=== PATIENT | female | born 1950 | race Caucasian/White ===

== ENCOUNTER 2020-07-28 11:28 | Outpatient (REF) | payer BC, SELFPAY ==
[2020-07-28 14:04] LABS: MANUAL DIFF FLAG NO
[2020-07-28 14:06] LABS: Basophils Absolute Auto 0.1 X10*3/uL (0.0-0.2); Eosinophils Absolute Auto 0.5 X10*3/uL (0.0-0.4); Eosinophils Percent Auto 5.5 % (0-4); Hematocrit 38.3 % (37-47); Hemoglobin 12.7 g/dl (12.0-16.0); Imm Gran Abs Auto 0.03 X10*3/uL (0.00-0.03); Imm Gran Pct Auto 0.4 % (0.0-0.4); Lymphocytes Absolute Auto 2.3 X10*3/uL (1.2-4.9); Lymphocytes Percent Auto 28.3 % (20-40); Mean Corpuscular HGB Conc 33.2 g/dl (31.0-35.0); Mean Corpuscular Hemoglobin 32.5 pg (27.0-33.0); Mean Platelet Volume 9.7 fL (9.4-12.3); Monocytes Absolute Auto 0.6 X10*3/uL (0.1-1.2); Monocytes Percent Auto 7.7 % (2-11); Neutrophils Absolute Auto 4.6 X10*3/uL (2.0-8.3); Neutrophils Percent Auto 57.1 % (45-73); Platelet Count 324 X10*3/uL (160-400); Red Blood Count 3.91 X10*6/uL (4.20-5.50); White Blood Count 8.1 X10*3/uL (4.8-10.8)
[2020-07-28 15:03] LABS: Alanine Aminotransferase 10 U/L (0-31); Alkaline Phosphatase 45 U/L (39-117); Anion Gap 13 (12-20); Aspartate Amino Transferase 16 U/L (5-31); Bilirubin Total 0.4 mg/dL (0.0-1.0); Blood Urea Nitrogen 17 mg/dL (9-16); Carbon Dioxide 26 mmol/L (22-29); Chloride 104 mmol/L (96-108); Cholesterol 260 mg/dL; Estimated Glomerular Filt Rate > 60; Glucose Random 76 mg/dL (60-115); Potassium 4.3 mmol/L (3.3-5.1); Sodium 139 mmol/L (135-145); Total Protein 6.7 g/dL (6.5-8.0)
[2020-07-28 15:06] LABS: Free T4 (Free Thyroxine) 0.77 ng/dL (0.71-1.85); Thyroid Stimulating Hormone 2.59 uIU/mL (0.32-4.0)
== END 2020-07-28 11:29 | disposition home or self-care (01) ==
LOC: HO.10HDL 11:28
PROVIDERS: Visit Provider Internal Medicine
DX: J44.9 Chronic obstructive pulmonary disease, unspecified (principal); K21.9 Gastro-esophageal reflux disease without esophagitis; I83.90 Asymptomatic varicose veins of unspecified lower extremity; Z98.890 Other specified postprocedural states
CPT/HCPCS: 36415; 80053; 82465; 84439; 84443; 85025

== ENCOUNTER 2021-04-09 | Outpatient (REF) | payer BC, SELFPAY | END 2021-04-09 00:01 | disposition home or self-care (01) | LOC: HO.LAB | PROVIDERS: Visit Provider Internal Medicine | DX: Z20.822 Contact with and (suspected) exposure to COVID-19 (principal) | CPT/HCPCS: 36415; 87635; C9803 ==

== ENCOUNTER 2021-11-17 16:08 | Outpatient (REF) | payer MEDICARE, SELFPAY ==
--- NOTE | ~2021-11-17 | XR_ITS ---
EXAMINATION: XR CERVICAL SPINE CLINICAL INFORMATION: Pain and neck region down the shoulders COMPARISON: None TECHNIQUE: 3 views of the cervical spine were obtained. FINDINGS: There is normal cervical lordosis. The vertebral heights and alignment is normal. There is loss of C4-C5, C5-C6 and C6-C7 disc heights. There is mild spinal spondylosis mid cervical spine. There is mild bilateral narrowing of C5-C6 and C6-C7 neural foramina from uncovertebral hypertrophic changes. No visible acute fracture, dislocation or subluxation seen. There are surgical linda in the anterior neck from previous intervention. XR/XR cervical spine 4V IMPRESSION: No visible acute fracture dislocation. Mild ventral spondylosis C5-C6 and C6-C7 disc levels from uncovertebral hypertrophic changes.
== END 2021-11-17 16:09 | disposition home or self-care (01) ==
LOC: HO.XRAY 16:08
PROVIDERS: PCP Internal Medicine; Visit Provider Internal Medicine
DX: M54.2 Cervicalgia (principal)
CPT/HCPCS: 72050

== ENCOUNTER 2023-11-15 10:07 | Outpatient (REF) | payer MEDICARE, SELFPAY ==
--- NOTE | ~2023-11-15 | XR_ITS ---
EXAMINATION: XR ANKLE, RIGHT XR FOOT, RIGHT CLINICAL INDICATION: Right ankle injury, patient states he fell off of stairs. TECHNIQUE: 5 views of the right foot and ankle. COMPARISON: None available. FINDINGS: RIGHT ANKLE/FOOT: Diffuse soft tissue swelling at the ankle with joint effusion. Diffuse demineralization. Tiny plantar calcaneal spur. Mild degenerative changes at the tibiotalar joint. Mild degenerative changes in the first metatarsophalangeal joint. Subtle, linear calcification along the inferomedial aspect of the fibula, possibly representing a mildly displaced fracture versus chronic/degenerative calcification versus artifact. XR/XR foot RT min 3V IMPRESSION: 1. Diffuse soft tissue swelling at the ankle with joint effusion. 2. Diffuse demineralization. 3. Subtle, linear calcification along the inferomedial aspect of the fibula, possibly representing a mildly displaced fracture versus chronic/degenerative calcification versus artifact. 4. Correlation with clinical exam recommended to determine further management including possible additional imaging with CT scan if fracture is suspected. This study was presented today November 15, 2023 for interpretation. Stat results provided at this time as requested by referring provider.
--- NOTE | ~2023-11-15 | XR_ITS ---
EXAMINATION: XR ANKLE, RIGHT XR FOOT, RIGHT CLINICAL INDICATION: Right ankle injury, patient states he fell off of stairs. TECHNIQUE: 5 views of the right foot and ankle. COMPARISON: None available. FINDINGS: RIGHT ANKLE/FOOT: Diffuse soft tissue swelling at the ankle with joint effusion. Diffuse demineralization. Tiny plantar calcaneal spur. Mild degenerative changes at the tibiotalar joint. Mild degenerative changes in the first metatarsophalangeal joint. Subtle, linear calcification along the inferomedial aspect of the fibula, possibly representing a mildly displaced fracture versus chronic/degenerative calcification versus artifact. XR/XR ankle RT min 3V IMPRESSION: 1. Diffuse soft tissue swelling at the ankle with joint effusion. 2. Diffuse demineralization. 3. Subtle, linear calcification along the inferomedial aspect of the fibula, possibly representing a mildly displaced fracture versus chronic/degenerative calcification versus artifact. 4. Correlation with clinical exam recommended to determine further management including possible additional imaging with CT scan if fracture is suspected. This study was presented today November 15, 2023 for interpretation. Stat results provided at this time as requested by referring provider.
== END 2023-11-15 10:08 | disposition home or self-care (01) ==
LOC: HO.XRAY 10:07
PROVIDERS: PCP Internal Medicine; Visit Provider Internal Medicine
DX: S99.911D Unspecified injury of right ankle, subsequent encounter (principal)
CPT/HCPCS: 73610; 73630

== ENCOUNTER 2023-12-30 11:29 | Outpatient (REF) | payer MEDICARE, SELFPAY ==
[2024-01-02 21:44] LABS: Lyme Abs Screen <0.90 index
== END 2023-12-30 11:30 | disposition home or self-care (01) ==
LOC: HO.LAB 11:29
PROVIDERS: PCP Internal Medicine; Visit Provider Internal Medicine
DX: T14.8XXA Other injury of unspecified body region, initial encounter (principal); W57.XXXA Bitten or stung by nonvenomous insect and other nonvenomous arthropods, initial encounter
CPT/HCPCS: 36415; 86617; 86618

== ENCOUNTER 2024-03-20 17:34 | Emergency (ER) | payer MEDICARE, SELFPAY ==
--- NOTE | ~2024-03-20 | XR_ITS ---
EXAMINATION: XR CHEST CLINICAL INFORMATION: HTN COMPARISON: None available. TECHNIQUE: 2 views of the chest were obtained. FINDINGS: Lungs are hyperinflated. The heart and pulmonary vessels appear normal. No infiltrates, effusions or lung masses are seen. XR/XR chest 2V IMPRESSION: Hyperinflated lungs. No acute intrathoracic disease. Electronically signed by: Amandeep Carter MD 03/20/2024 09:28 PM EST
--- NOTE | ~2024-03-20 | CT_ITS ---
EXAMINATION: CT HEAD WITHOUT CONTRAST CLINICAL INFORMATION: Hypertension with headache. COMPARISON: None available. TECHNIQUE: Contiguous axial imaging was performed from the skull base to vertex without intravenous administration of contrast. This CT examination was performed using dose optimization techniques as appropriate, variously including the following: *Automated exposure control *Adjustment of mA and/or kV according to patient size (this includes techniques or standardized protocols for targeted exams where dose is matched to indication/reason for exam; i.e. extremities or head) *Use of iterative reconstruction technique DLP: 552 mGy-cm FINDINGS: The lateral, third and fourth ventricles are normally outlined. The cortical sulci and basal cisterns are normally outlined as well. There is no acute territorial defects, hemorrhage or midline shift. The extra-axial spaces are unremarkable. Calvarium/scalp: Intact. Maxillofacial sinuses and mastoids: There are bilateral maxillary sinus opacities. The remaining visualized maxillofacial sinuses and mastoids are clear. CT/CT head/brain wo IV con IMPRESSION: 1. No acute intracranial abnormality 2. Bilateral maxillary sinus disease. Correlation for current significance needed. Electronically signed by: Kory Skelton MD 03/20/2024 11:42 PM [facility]
[2024-03-20 17:45] VITALS: BP 156/97; PULSE 86; RESP 16; TEMP 36.9; O2SAT 98; BMI 23.0
--- NOTE | 2024-03-20 17:52 | ECG_ITS ---
Test Reason : HTN Blood Pressure : / mmHG Vent. Rate : 074 BPM Atrial Rate : 074 BPM P-R Int : 178 ms QRS Dur : 068 ms QT Int : 358 ms P-R-T Axes : 077 039 028 degrees QTc Int : 397 ms Normal sinus rhythm Nonspecific ST abnormality Abnormal ECG When compared with ECG of 23-SEP-2008 14:45, No significant change was found Referred By: Sigrid Green Electronically Signed By:Paul Perera
--- NOTE | 2024-03-20 17:54 | ED.HA ---
HPI - Headache General Chief Complaint: Headache Stated Complaint: High blood pressure/Head pain Time Seen by Provider: 03/20/24 21:33 Source: patient Mode of arrival: ambulatory Limitations: no limitations History of Present Illness ED Provider: HPI Narrative: Patient's history of borderline hypertension not on any medication your noticed headache since afternoon check her blood pressure was in 160 headache is mostly in the occipital and neck area does have chronic neck pain in the past no nausea no vomiting patient was seen by PCP last month blood pressure was slightly elevated advised salt restrictions today she called the primary care physician who advised to start take 2.5 mg amlodipine which she took it around 17:00. Related Data Allergies Allergy/AdvReac Type Severity Reaction Status Date / Time penicillin G [Penicillin G] Allergy Mild RASH Unverified 01/03/20 14:56 vancomycin [Vancomycin] Allergy Mild RED MAN Unverified 03/20/24 17:48 SYNDROME Review of Systems Review of Systems: Yes all other systems are reviewed and are negative FORMERLY [facility], [facility]1983 Social History Social History Smoked in Last 30 Days: No Use of substances other than those prescribed or required for medical reasons: No Advance Directives: No Advance Directives Information Provided: Yes Do you have a plan to hurt others: No Plan Physical Exam Vital Signs: Vital Signs: Last Vital Signs Temp 97.9 F 03/21/24 00:01 Pulse 89 03/21/24 00:01 Resp 16 03/21/24 00:01 BP 143/84 H 03/21/24 00:01 Pulse Ox 97 03/21/24 00:01 O2 Del Method Room Air 03/21/24 00:01 BMI result Body Mass Index 23.0 Appearance: Alert. Oriented X3. No acute distress. Eyes: PERRLA, No Nystagmus ENT: Pharynx normal. Oral Mucosa moist Neck: Normal inspection. Neck supple. CVS: Normal heart rate and rhythm. Pulses normal. Respiratory: No respiratory distress. Equal air entry bilateral, no wheezing/rales/rhonchi Abdomen: Soft and nontender. Bowel sounds are present, no mass palpable, no CVA tenderness Skin: Skin warm and dry. Normal skin color. Normal skin turgor. Extremities: No lower extremity edema. No calf tenderness Neuro: Oriented X 3. No motor deficit. No sensory deficit.No cerebellar signs , cranial nerves II-XII intact Course Course Course Narrative: This is a rapid medical exam performed by Sigrid Green PA-C. The patient is a 73-year-old female with a history of asthma/COPD, presents with multiple complaints. Patient states she has had ongoing neck pain for over a year and a half, she had a recent MRI that reveals she has a disc disease with degenerative changes. Patient has developed a headache that originates from the neck and radiates upward. She noted her blood pressure to be elevated at home, she called her primary care provider, they started her on amlodipine 2.5 mg. We will be screening basic labs, cardiac enzymes and UA to assess for end-organ damage, EKG and chest x-ray. Patient is hemodynamically stable, no longer hypertensive, she is able to return to the waiting room pending her full medical assessment. Medical Decision Making Lab Data MDM Lab Attestation statement: I reviewed the patient's lab results. 03/20/24 18:13 03/20/24 18:12 Labs: Lab Results 03/20/24 03/20/24 Range/Units 18:12 18:13 WBC 8.3 (4.8-10.8) X10*3/uL RBC 3.90 L (4.20-5.50) X10*6/uL Hgb 12.5 (12.0-16.0) g/dl Hct 37.6 (37.0-47.0) % MCV 96.4 (80.0-98.0) fL MCH 32.1 (27.0-33.0) pg MCHC 33.2 (31.0-35.0) g/dl RDW 13.7 (11.0-16.0) % Plt Count 305 (160-400) X10*3/uL MPV 8.9 L (9.4-12.3) fL Immature Gran % (Auto) 1.0 H (0.0-0.4) % Neut % (Auto) 57.1 (45-73) % Lymph % (Auto) 30.5 (20-40) % [place] % (Auto) 7.3 (2-11) % Eos % (Auto) 2.8 (0-4) % Baso % (Auto) 1.3 (0-2) % Lymph # (Auto) 2.5 (1.2-4.9) X10*3/uL [place] # (Auto) 0.6 (0.1-1.2) X10*3/uL Eos # (Auto) 0.2 (0.0-0.4) X10*3/uL Baso # (Auto) 0.1 (0.0-0.2) X10*3/uL Abs Immat Gran (auto) 0.08 H (0.00-0.03) X10*3/uL Absolute Neuts (auto) 4.7 (2.0-8.3) x10*3/uL Absolute Nucleated RBC 0.000 (0.0-0.012) X10*3/uL Nucleated RBC % (auto) 0.0 (0.0-0.2) /100WBC Sodium 135 (135-145) mmol/L Potassium 3.6 (3.3-5.1) mmol/L Chloride 102 (96-108) mmol/L Carbon Dioxide 27 (22-29) mmol/L Anion Gap 10 L (12-20) BUN 12 (9-16) mg/dL Creatinine 0.94 (0.5-1.4) mg/dL Estim Creat Clear Calc 42.1 Estimated GFR 58 Random Glucose 97 (60-115) mg/dL Calcium 8.9 (8.4-10.2) mg/dL Troponin I High Sens < 2.7 (<3.5-17.0) ng/L Urine Color Yellow Urine Appearance Clear Urine pH 7.0 (5.0-9.0) Ur Specific [place] <= 1.005 (1.005-1.025) Urine Protein Negative (Neg-Trace) mg/dL Urine Glucose (UA) Negative (Negative) mg/dL Urine Ketones Negative (Negative) mg/dL Urine Blood Negative (Negative) Urine Nitrite Negative (Negative) Ur Leukocyte Esterase Trace H (Negative) Urine RBC 0-2 (0-2) /HPF Urine WBC 0-5 (0-5) /HPF Ur Squamous Epith Cells 0-2 (0-2) /HPF Urine Bacteria None Seen (None Seen) Hyaline Casts 0-2 (0-2) /LPF Independent Interpretation I performed an independent interpretation of an: EKG and CT Scan Interpretation: NAD Normal sinus rhythm heart rate 74 beats per minute normal interval normal axis no acute STT wave changes no acute ischemia Radiology Impression Discussion of test interpretation with radiology: I have reviewed the radiologist's reading. Discharge Plan Discharge Clinical Impression: Hypertension Patient Disposition: Home, Self-Care Instructions: Hypertension (ED) Additional Instructions: Continue to take your amlodipine 2.5 mg daily as prescribed by your PCP Follow up with your PCP Interventions: ED Discharge Assessment Last Done: 03/21/24 00:01 Discharge Date/Time: 03/21/24 00:02 Print Language: Bulgarian
[2024-03-20 18:21] LABS: MANUAL DIFF FLAG NO
[2024-03-20 18:29] LABS: Appearance Urine Clear; Color Urine Yellow; Glucose Urine UA Negative (Negative); Leukocyte Esterase Urine Trace (Negative); Nitrite Urine Negative (Negative); Specific Gravity - Urine <= 1.005 (1.005-1.025); UMIC TRIGGER UACC YES; Urine Blood Negative (Negative); Urine Ketones Negative (Negative); Urine Protein Negative (Neg-Trace)
[2024-03-20 18:34] LABS: Anion Gap 10 (12-20); Bacteria Urine None Seen (None Seen); Blood Urea Nitrogen 12 mg/dL (9-16); Calcium 8.9 mg/dL (8.4-10.2); Carbon Dioxide 27 mmol/L (22-29); Chloride 102 mmol/L (96-108); Creatinine Clr Calc Pharmacy 42.1; Estimated Glomerular Filt Rate 58; Glucose Random 97 mg/dL (60-115); Hyaline Casts Urine 0-2 /LPF (0-2); Potassium 3.6 mmol/L (3.3-5.1); RBC Urine 0-2 /HPF (0-2); Sodium 135 mmol/L (135-145); Squamous Epithelial Cell Urine 0-2 /HPF (0-2); WBC Urine 0-5 /HPF (0-5)
[2024-03-20 18:39] LABS: Basophils Absolute Auto 0.1 X10*3/uL (0.0-0.2); Basophils Percent Auto 1.3 % (0-2); Eosinophils Absolute Auto 0.2 X10*3/uL (0.0-0.4); Eosinophils Percent Auto 2.8 % (0-4); Hematocrit 37.6 % (37.0-47.0); Hemoglobin 12.5 g/dl (12.0-16.0); Imm Gran Abs Auto 0.08 X10*3/uL (0.00-0.03); Lymphocytes Absolute Auto 2.5 X10*3/uL (1.2-4.9); Lymphocytes Percent Auto 30.5 % (20-40); Mean Corpuscular HGB Conc 33.2 g/dl (31.0-35.0); Mean Corpuscular Hemoglobin 32.1 pg (27.0-33.0); Mean Corpuscular Volume 96.4 fL (80.0-98.0); Mean Platelet Volume 8.9 fL (9.4-12.3); Monocytes Absolute Auto 0.6 X10*3/uL (0.1-1.2); Monocytes Percent Auto 7.3 % (2-11); Neutrophils Absolute Auto 4.7 x10*3/uL (2.0-8.3); Neutrophils Percent Auto 57.1 % (45-73); Platelet Count 305 X10*3/uL (160-400); Red Cell Distribution Width 13.7 % (11.0-16.0); White Blood Count 8.3 X10*3/uL (4.8-10.8)
[2024-03-20 18:42] LABS: Troponin-I High Sensitivity < 2.7 ng/L (<3.5-17.0)
[2024-03-20 20:21] VITALS: BP 150/65; PULSE 78; RESP 18; TEMP 36.4; O2SAT 94
[2024-03-20 21:58] VITALS: BP 161/76; PULSE 81; RESP 18; TEMP 36.6; O2SAT 94
[2024-03-20 22:23] VITALS: BP 135/71
[2024-03-20 23:38] VITALS: BP 143/84; PULSE 89; RESP 18; TEMP 36.6; O2SAT 97
[2024-03-21 00:01] VITALS: BP 143/84; PULSE 89; RESP 16; TEMP 36.6; O2SAT 97
--- OUTSIDE RECORDS SUMMARY | 2024-03-27 15:57 | XMS_ITS | Patient Health Record ---
Author Organization [facility] Address [address] [place] [address] Care Team Providers Care Textile Dyer Name Role Phone Buster Murphy MD Primary Care Provider UnavailNay Barboza Unavailable [phone] Allergies Allergen (clinical drug ingredient) Drug/Non Drug Allergy documented on EMR Reaction Allergy Type Onset Date Status Penicillin Unknown Drug Allergy Inacti ve Reason For Referral No Information Medications Medication SIG (Take, Route, Fr equency, Duration) Notes Start Date End Date Status Soothe eyedrops Active Spiriva HandiHaler A ctive Temazepam 7.5 MG 1 capsule at bedtime as needed Orally Once a day Active Vitamin D Active APAP Active NexIUM 20 MG 1 capsule Orally Onc e a day for 30 day(s) Active Immunizations Vaccine Route Administration Date Status Comme nts COVID-19 Pfizer BioNTech Vaccine Unknown 12/11/2020 Administered 1st 04/22/2020 2nd 05/13/2020 Social History Tobacco Use: Social History Observation Description Date Details (start date - stop date) Former Smoker NA - 06/12/2001 Tobacco Use/Smoking Question Answer Notes Are you a: former smoker When did you stop smoking? 06/12/2001 Additional Findings: Tobacco Non-User Ex-cigaret te smoker Alcohol Screen Question Answer Notes Did you have a drink containing alcohol in the p ast year? No Points 0 Interpretation Negative Tobacco use other than smoking: Question Answer Notes Are you an other tobacco user? No Plan Of Treatment No Information Insurance Providers Payer Name Payer Address Payer Phone Subscriber Number Group Number Insured Name Patient Relationship to Insured Coverage Start Date Coverage End Date BlueCare 65 Medicare Preferred [address] [place] [address] [id number] Connie Taylor Self - patient is the insured Medical (General) History Medical History History ICD Code Lung disease Osteoporosis Reflux ( GERD) Rheumatic fever Measles Mumps Chicken pox Joint implants/screws ocular cicatricial pemphigoid Surgical History Surgery Date(Month/Year) cholecystectomy 2001 thyroidectomy, left 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
== END 2024-03-21 00:02 | disposition home or self-care (01) ==
PROVIDERS: Physician Assistant Medical; Emergency Provider Internal Medicine; PCP Internal Medicine
DX: R51.9 Headache, unspecified (principal); M54.2 Cervicalgia; I10 Essential (primary) hypertension; R94.31 Abnormal electrocardiogram [ECG] [EKG]; Z79.899 Other long term (current) drug therapy
CPT/HCPCS: 36415; 70450; 71046; 80048; 81001; 84484; 85025; 93005; 99284; 99285

== ENCOUNTER → 2024-03-20 17:52 | Outpatient (BNV) | payer MEDICARE, SELFPAY | PROVIDERS: Emergency Provider Internal Medicine; PCP Internal Medicine; Visit Provider Internal Medicine Cardiovascular Disease | DX: R94.31 Abnormal electrocardiogram [ECG] [EKG] (principal) | CPT/HCPCS: 93010 ==

== ENCOUNTER 2024-04-04 10:42 | Outpatient (AMB) | payer MEDICARE, SELFPAY ==
--- OUTSIDE RECORDS SUMMARY | 2024-04-04 10:45 | XMS_ITS | Patient Health Record ---
Author Organization [facility] Address [address] [place] [address] Care Team Providers Care Machinist Supervisor Outside Name Role Phone Buster Murphy MD Primary Care Provider UnavailNay Barboza Unavailable [phone] Allergies Allergen (clinical drug ingredient) Drug/Non Drug [...] Date BlueCare 65 Medicare Preferred [address] [place] [address] [id number] Connie Taylor Self - patient is the insured Medical (General) History Medical History History ICD Code Lung disease Osteoporosis Reflux ( GERD) Rheumatic fever Measles Mumps Chicken pox Joint implants/screws ocular cicatricial pemphigoid Surgical History Surgery Date(Month/Year) cholecystectomy 2001 thyroidectomy, left 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
--- NOTE | 2024-04-04 11:05 | A.OFFVIS_ITS ---
Vital Signs 04/04/24 11:06 Height 5 ft 2.5 in Weight 128 lb 4.944 oz BMI 23.1 BP 124/62 Blood Pressure Location Lt brachial Position Sitting Pulse 76 Pulse Source Pulse Oximeter Pulse Oximetry (%) 98 Oxygen Delivery Method Room Air Intake Visit Reasons: Osteoarthritis Intake Note: Patient presents for follow up on osteoarthritis. Allergies umeclidinium [From Anoro Ellipta] Allergy (Mild, Verified 04/04/24 11:08) severe eye pain and congestion vancomycin [Vancomycin] Allergy (Mild, Unverified 04/04/24 11:07) RED MAN SYNDROME vilanterol [From Anoro Ellipta] Allergy (Mild, Verified 04/04/24 11:08) severe eye pain and congestion HPI HPI Osteoarthritis: Details: Takes tylenol 500mg daily - TID with benefit. She recently had c-spine MRI at [facility] for evaluation of neck pain. She had Reclast at least 2 years ago. She reports that bone density was in 2021. She saw Gynecology in the summer who recommended that she get bone density 04/2024. She recalls bone density being done at [facility]. Reclast was delayed last year due to multiple tooth extractions. She reports gums have healed. She has had no complications. She continues to take calcium through her multivitamin and vitamin-D supplement x2 daily. She takes centrum for woman multivitamin mini daily centrum woman mini daily. Review of Systems Const All systems reviewed & are unremarkable except as noted in HPI and below Physical Exam Vital Signs: Last Vital Signs Pulse 76 04/04/24 11:06 BP 124/62 04/04/24 11:06 Pulse Ox 98 04/04/24 11:06 Oxygen Delivery Method Room Air 04/04/24 11:06 BMI result Body Mass Index 23.1 Const Other: General: Comfortable Skin: No lesions seen Assessment & Plan Assessment & Plan (1) Osteoporosis: Comment: Previously treated with Reclast. When I reviewed EMR [facility], her last bone density was 12/2019. Code(s): M81.0 - Age-related osteoporosis without current pathological fracture Category: Medical Qualifiers: Osteoporosis type: age-related Presence of current pathological fracture: without current pathological fracture Qualified Code(s): M81.0 - Age- related osteoporosis without current pathological fracture Plan: I have asked her to call hothouse worker for ordering of bone density at [facility] where she has previously had her bone densities Return to clinic in June 2024 to review bone density and discuss next steps considering another Reclast dose if appropriate [facility] Labs ordered this visit including bone turnover markers Continue vitamin-D supplement and multivitamin Orders: Orders Collagen Type I C-Telopeptide Today M81.0 - Age-related osteoporosis without current pathological fracture Calcium Today M81.0 - Age-related osteoporosis without current pathological fracture Vitamin D 25-OH Total Today M81.0 - Age-related osteoporosis without current pathological fracture Albumin Level Today M81.0 - Age-related osteoporosis without current pathological fracture Alkaline Phosphatase Bone Today M81.0 - Age-related osteoporosis without current pathological fracture Creatinine Today M81.0 - Age-related osteoporosis without current pathological fracture Coding Level of Care Code Est Pt Level 3 (27842) Complex EM visit Add On G2211 Diagnoses Age-related osteoporosis without current pathological fracture M81.0 Osteoporosis type: age-related Presence of current pathological fracture: without current pathological fracture
[2024-04-04 11:06] VITALS: BP 124/62; PULSE 76; O2SAT 98; BMI 23.1
== END 2024-04-04 11:53 | disposition home or self-care (01) ==
PROVIDERS: PCP Internal Medicine; Visit Provider Internal Medicine Rheumatology
DX: M81.0 Age-related osteoporosis without current pathological fracture (principal)
CPT/HCPCS: 99213; G2211

== ENCOUNTER → 2024-04-04 10:42 | Outpatient (BNVA) | payer MEDICARE, SELFPAY | PROVIDERS: PCP Internal Medicine; Visit Provider Internal Medicine Rheumatology | DX: M81.0 Age-related osteoporosis without current pathological fracture (principal) | CPT/HCPCS: 99212 ==

== ENCOUNTER 2024-04-05 08:30 | Outpatient (REF) | payer MEDICARE, SELFPAY ==
--- OUTSIDE RECORDS SUMMARY | 2024-04-05 08:44 | XMS_ITS | Patient Health Record ---
Author Organization [facility] Address [address] [place] [address] Care Team Providers Care Night Time Babysitter Name Role Phone Buster Murphy MD Primary Care Provider UnavailNay Barboza Unavailable [phone] Allergies Allergen (clinical drug ingredient) Drug/Non Drug [...] Date BlueCare 65 Medicare Preferred [address] [place] [address] [id number] Connie Taylor Self - patient is the insured Medical (General) History Medical History History ICD Code Lung disease Osteoporosis Reflux ( GERD) Rheumatic fever Measles Mumps Chicken pox Joint implants/screws ocular cicatricial pemphigoid Surgical History Surgery Date(Month/Year) cholecystectomy 2001 thyroidectomy, left 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
[2024-04-05 10:40] LABS: Albumin Level 4.1 g/dL (3.5-5.0); Calcium 9.4 mg/dL (8.4-10.2); Estimated Glomerular Filt Rate 58
[2024-04-05 10:58] LABS: Vitamin D 25-OH Total 77.7 ng/mL (>30)
[2024-04-09 18:19] LABS: Alkaline Phosphatase Bone 7.4 mcg/L (5.6-29.0)
[2024-04-11 13:49] LABS: Collagen Type I C-Telopeptide 140 pg/mL (see note)
== END 2024-04-05 08:31 | disposition home or self-care (01) ==
LOC: HO.LAB 08:30
PROVIDERS: PCP Internal Medicine; Visit Provider Internal Medicine Rheumatology
DX: M81.0 Age-related osteoporosis without current pathological fracture (principal)
CPT/HCPCS: 36415; 82040; 82306; 82310; 82523; 82565; 84075

== ENCOUNTER 2024-08-09 08:00 | Outpatient (REF) | payer MEDICARE, SELFPAY ==
--- OUTSIDE RECORDS SUMMARY | 2024-08-09 09:19 | XMS_ITS | Encounter Summary ---
Author Organization [facility] Address [address] [place] [address] Care Team Providers Care Dance Historian Name Role Phone Buster Murphy MD Primary Care Provider Unava ilable Reason for Visit * Reason Onset Date Comments refill request 04/30/2021 Encounter Details Date Type Department Care Team Description 04/30/2021 Refill Pulmonology - [place] 175 [facility] [address] [place] [address] Adilene Rodgers MD [address] [place] [address] refill request Social History Tobacco [...] NO Patients current insurance carrier is: Payor: [facility]/MEDICARE PPO / Plan: [facility] MDCR-ADV PPO $20/$40 [place] / Product Type: MEDICARE [id number] documented in this encounter Plan of Treatment Not on file documented as of this encounter Visit Diagnoses Diagnosis Pulmonary emphysema, unspecified emphysema type (HCC) documented in this encounter Care Teams Dance Historian Relationship Specialty Start Date End Date Buster Murphy MD PCP - General Internal Medicine 04/27/17 documented as of this encounter
--- OUTSIDE RECORDS SUMMARY | 2024-08-09 09:19 | XMS_ITS | Encounter Summary ---
Author Organization [facility] Address [address] [place] [address] Care Team Providers Care Market Research Coordinator Name Role Phone Buster Murphy MD Primary Care Provider Unava ilable Reason for Visit * Reason Onset Date Comments Faxed Refill 02/09/2018 Encounter Details Date Type Department Care Team Description 02/09/2018 Refill Pulmonology - [place] 175 [facility] [address] [place] [address] Adilene Rodgers MD [address] [place] [address] Faxed Refill Social History Tobacco [...] NO Patients current insurance carrier is: Payor: [employer] [facility] [employer] / Plan: EPO $20 [employer] /Product Type: EPO documented in this encounter Plan of Treatment Not on file documented as of this encounter Visit Diagnoses Not on filedocumented in this encounter Care Teams Market Research Coordinator Relationship Specialty Start Date End Date Buster Murphy MD PCP - General Internal Medicine 04/27/17 documented as of this encounter
--- OUTSIDE RECORDS SUMMARY | 2024-08-09 09:19 | XMS_ITS | Encounter Summary ---
Author Organization [facility] Address [address] [place] [address] Care Team Providers Care Threshing Machine Operator Name Role Phone Buster Murphy MD Primary Care Provider Unava ilable Reason for Visit * Reason Comments E-prescribe Rx Request Encounter Details Date Type Department Care Team Description 03/29/2022 Refill Pulmonology - [place] 175 [facility] [address] [place] [address] Adilene Rodgers MD [address] [place] [address] E-prescribe Rx Request Social History Tobacco Use [...] Telephone Encounter - Jj Varela CMA - 03/30/2022 9:10 AM EST BRIGID 08/20/21. Future appt 08/25/22. * Telephone Encounter - Denita Rizzo - 03/29/2022 10:40 AM EST Patient would like script to be: E-PRESCRIBED/FAXED TO PHARMACY WHEN WAS THE PATIENT'S LAST APPOINTMENT IN ADULT MEDICINE? 08/20/21 WHEN WAS THE LAST TIME THE PATIENT SAW THEIR PCP? Same as above Does patient have an upcoming appointment? Yes 08/25/22 (THE MEDICATION REQUESTED IS ON THE MED [...] N/A Patients current insurance carrier is: Payor: [facility]/MEDICARE PPO / Plan: [facility] MDCR-ADV PPO $20/$40 [place] / Product Type: MEDICARE [id number] documented in this encounter Plan of Treatment Not on file documented as of this encounter Visit Diagnoses Diagnosis Pulmonary emphysema, unspecified emphysema type (HCC) documented in this encounter Care Teams Threshing Machine Operator Relationship Specialty Start Date End Date Buster Murphy MD PCP - General Internal Medicine 04/27/17 documented as of this encounter
--- OUTSIDE RECORDS SUMMARY | 2024-08-09 09:19 | XMS_ITS | Encounter Summary ---
Author Organization [facility] Address [address] [place] [address] Care Team Providers Care Environmental Science Professor Name Role Phone Buster Murphy MD Primary Care Provider Unava ilable Encounter Details Date Type Department Care Team Description 05/18/2018 Telephone Pulmonology - [place] 175 [facility] [address] [place] [address] Adilene Rodgers MD [address] [place] [address] Social History Tobacco Use Types Packs/Day Years Used Date Smoking Tobacco: Former Cigarettes 1 20 Smokeless Tobacco: Never Comments:quit at age 40 Alcohol Use Standard Drinks/Week Comments No 0 (1 standard drink = 0.6 oz pur e alcohol) Sex Assigned at Date Recorded Not on file documented as of this encounter Miscellaneous Notes * Telephone Encounter - Adilene Rodgers MD - 05/18/2018 8:[address] scan documented in this encounter Plan of Treatment Not on file documented as of this encounter Visit Diagnoses Not on filedocumented in this encounter Care Teams Environmental Science Professor Relationship Specialty Start Date End Date Buster Murphy MD PCP - General Internal Medicine 04/27/17 documented as of this encounter
--- OUTSIDE RECORDS SUMMARY | 2024-08-09 09:19 | XMS_ITS | Encounter Summary ---
Author Organization [facility] Address [address] [place] [address] Care Team Providers Care Windows Phone Developer Name Role Phone Buster Murphy MD Primary Care Provider Unava ilable Reason for Visit * Reason Onset Date Comments Call From Insurance Co 04/01/2022 Encounter Details Date Type Department Care Team Description 04/01/2022 Telephone Pulmonology - [place] 175 [facility] [address] [place] [address] Adilene Rodgers MD [address] [place] [address] Call From Insurance Co Social [...] 3:44 PM EST Fax came in from [facility] Medicare Advantage Request; in regards to Spiriva Handihaler Capsule. will give the form to [place] documented in this encounter Plan of Treatment Not on file documented as of this encounter Visit Diagnoses Not on filedocumented in this encounter Care Teams Windows Phone Developer Relationship Specialty Start Date End Date Buster Murphy MD PCP - General Internal Medicine 04/27/17 documented as of this encounter
--- OUTSIDE RECORDS SUMMARY | 2024-08-09 09:19 | XMS_ITS | Clinical Summary ---
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 4355-2636 Vocal cord dysfunction 10/12/2016 Asthma 10/12/2016 Allergic rhinitis 01/29/2014 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 Eczema 04/24/2013 Encounters Date Type Department Care Team Description 05/28/2024 Telephone Gastroenterology - [address] [place] [address] Lanette Mansfield MA from Last [...] flux disease) Asthma 10/12/2016 DX:Asthma 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; COMMENT: S/p treatment with methotrexate 2963-2885 Allergic rhinitis 01/29/2014 DX:Allergic rh initis Chronic obstructive pulmonar y disease ([facility] V24, [facility] V28) 01/13/2017 DX:Chronic obstructive pulm onary disease ([facility]) Eczema 04/24/2013 DX:Eczema Idiopathic peripheral neuropathy [...] medical examination at a health care facility [facility] SCREENING DIGITAL Routine 01/02/2020 4:42 PM EDT Encounter for screening mammogram for malignant neoplasm of breast [facility] DEXA AXIAL SKELETON Routine 01/02/2020 3:34 PM EDT Encounter for screening for osteoporosis from Last 3 Months or Most Recently Relevant to Health Maintenance Results * (ABNORMAL) Lipid panel with reflex to direct LDL (03/08/2024 2:57 PM EST) Cholesterol 242(H) 0 - 200 mg/dL LAB CHEMISTRY METHOD 03/08/2024 6:50 PM [facility] Triglycerides 195(H) 0 - 150 mg/dL LAB CHEMISTRY METHOD 03/08/2024 6:50 PM EST [facility] HDL 59 >=40 mg/dL LAB CHEMISTRY METHOD 03/08/2024 6:50 PM EST [facility] LDL Calculated 144(H) 0 - 100 mg/dL LAB CHEMISTRY METHOD 03/08/2024 6:50 PM EST [facility] VLDL Cholesterol Sal 39 mg/dL LAB CHEMISTRY METHOD 03/08/2024 6:50 PM EST [facility] Non HDL Chol. (LDL+VLDL) 183(H) <145 mg/dL LAB CHEMISTRY METHOD 03/08/2024 6:50 PM EST [facility] Chol/HDL Ratio 4.1 0.0 - 4.4 LAB CHEMISTRY METHOD 03/08/2024 6:50 PM EST [facility] Blood Venous blood specimen / Unknown Venipuncture / Unknown 03/08/2024 2:57 PM EST 03/08/2024 2:57 PM EST us Karel An MD LAB BLOOD ORDERABLES Final Res ult [facility] [address] [place] [address], * ELIJAH SCREENING DIGITAL (01/02/2020 4:42 PM EDT) Anatomical Region Laterality Modality Mammography 01/02/2020 3:00 PM EDT Narrative 01/02/2020 4:42 PM EDT [facility] Diagnostic Imaging Department [address] [place] [address] Patient: ??CONNIE EATON ?/Age/Sex: 1950 - 69 - F Unit#: ??[id number] ? Location/Status: ??SPDIMAM/REG CLI ? Mnemonic/Ordering Site: ??DIGSC/SPMAM Ordering Physician: ??KANG MANCIA MD Elijah Screening Digital - 01/02/20 - 1531 INDICATION: SCREENING COMPARISON: [facility] mammograms dating back to ?? 03/27/2014 TECHNIQUE: CC and MLO views of the breasts were obtained, using full field digital mammography with 3D tomosynthesis views in the MLO projection. Computer aided detection with the [employer] (T.O.H.L.) 7.2-H was employed. FINDINGS: The breasts contain [...] date for the next mammogram. (G0202 / [id number]) , ??[id number] Dictating Physician: ??TUYET SPANN MD Electronically Signed by: ??TUYET SPANN MD Dic Date/Time: ??01/02/20 1638 Sign date/Time: ??01/02/20 1642 Procedure Note Tuyet Spann MD - 04/07/2022 [facility] Diagnostic Imaging Department [address] [place] [address] Patient: CONNIE EATON Antonette /Age/Sex: 1950 - 69 - F Unit#: [id number] Location/Status: SPDIMAM/REG CLI Mnemonic/Ordering Site: DIGSC/SPMAM Ordering Physician: KANG MANCIA MD Elijah Screening Digital - 01/02/20 - 1531 INDICATION: SCREENING COMPARISON: [facility] mammograms dating back to 03/27/2014 TECHNIQUE: CC and MLO views of the breasts were obtained, using full field digital mammography with 3D tomosynthesis views in the MLO projection. Computer aided detection with the [employer] (T.O.H.L.) 7.2-H was employed. FINDINGS: The breasts contain [...] date for the next mammogram. G0202 / 29304) , [id number] Dictating Physician: TUYET SPANN MD Electronically Signed by: TUYET SPANN MD Dic Date/Time: 01/02/20 1638 Sign date/Time: 01/02/20 1642 us Kang Mancia MD IMG BI PROCEDURES Final Re sult * ELIJAH DEXA AXIAL SKELETON (01/02/2020 3:34 PM EDT) Anatomical Region Laterality Modality Mammography 01/02/2020 2:59 PM EDT Narrative 01/02/2020 3:34 PM EDT [facility] Diagnostic Imaging Department [address] [place] [address] Patient: ??CONNIE EATON ?/Age/Sex: 1950 - 69 - F Unit#: ??[id number] ? Location/Status: ??SPDIMAM/REG CLI ? Mnemonic/Ordering Site: [...] probability of hip fracture of 7.5%. Code 55612 Dictating Physician: ??JARRET MARTINEZ MD Electronically Signed by: ??JARRET MARTINEZ MD Dic Date/Time: ??01/02/20 153 Sign date/Time: ??01/02/20 153 Procedure Note Jarret Martinez MD - 04/07/2022 [facility] Diagnostic Imaging Department [address] [place] [address] Patient: CONNIE EATON./Age/Sex: 1950 - 69 - F Unit#: [id number] [facility] Ordering Physician: KANG MANCIA MD [...] density of the femurs bilaterally is 0.79 gm/fj8buwlr is 78% of that of young normals [...] probability of hip fracture of 7.5%. Code 16518 Dictating Physician: JARRET MARTINEZ MD Electronically Signed by: JARRET MARTINEZ MD Dic Date/Time: 01/02/201532 Sign date/Time: 01/02/201533 Kang Mancia MD IMG BI PROCEDURES Final Re sult from Last 3 Months or Most Recently Relevant to Health Maintenance Insurance [employer] [place] MEDICARE ADVANTAGE Care Teams Residential Program Coordinator Relationship Specialty Start Date End Date Buster Murphy MD [address] [place] [address] [facility] [place], [place] PCP - General Internal Medicine 04/27/17
--- OUTSIDE RECORDS SUMMARY | 2024-08-09 09:19 | XMS_ITS | Encounter Summary ---
Author Organization [facility] Address [facility] [place] [address] Care Team Providers Care Labor Representative Name Role Phone Buster Murphy MD Primary Care Provider Unava ilable Reason for Visit * Reason Onset Date Comments Faxed Refill 12/28/2022 Encounter Details Date Type Department Care Team Description 12/28/2022 Refill Pulmonology - [place] 175 [facility] [address] [place] [address] Adilene Rodgers MD [address] [place] [address] Faxed Refill Social History Tobacco [...] on filedocumented in this encounter Care Teams Labor Representative Relationship Specialty Start Date End Date Buster uMrphy MD PCP - General Internal Medicine 04/27/17 documented as of this encounter
--- OUTSIDE RECORDS SUMMARY | 2024-08-09 09:20 | XMS_ITS | Encounter Summary ---
Author Organization [facility] Address [address] [place] [address] Care Team Providers Care Emergency Services Professional Name Role Phone Buster Murphy MD Primary Care Provider Unapatrick ilcamila Encounter Details Date Type Department Care Team Description 07/14/2020 Telephone Pulmonology - [place] [address] [facility] [address] [place] [address] Adilene Rodgers MD [address] [place] [address] Social History Tobacco Use Types Packs/Day Years Used Date Smoking Tobacco: Former Cigarettes 1 20 Smokeless Tobacco: Never Comments:quit at age 40 Alcohol Use Standard Drinks/Week Comments No 0 (1 standard drink = 0.6 oz pur e alcohol) Sex Assigned at Date Recorded Not on file COVID-19 Exposure Response Date Recorded In the last month, have you been in contact with someone who was confirmed or suspected to have Coronavirus / COVID-19? No / Unsure 07/14/2020 12:57 PM EDT documented as of this encounter Plan of Treatment Not on file documented as of this encounter Visit Diagnoses Not on filedocumented in this encounter Care Teams Emergency Services Professional Relationship Specialty Start Date End Date Buster Murphy MD PCP - General Internal Medicine 04/27/17 documented as of this encounter
--- OUTSIDE RECORDS SUMMARY | 2024-08-09 09:20 | XMS_ITS | Encounter Summary ---
Author Organization [facility] Address [address] [place] [address] Care Team Providers Care Dumpman Name Role Phone Buster Murphy MD Primary Care Provider Unava ilable Reason for Visit * Reason Onset Date Comments medication problems 07/06/2018 Encounter Details Date Type Department Care Team Description 07/06/2018 Telephone Pulmonology - [place] [address] [facility] [address] [place] [address] Adilene Rodgers MD [address] [place] [address] medication problems Social History Tobacco [...] patient is having a problem with?: Tiotropium [place]-Olodaterol(STIOLTO RESPIMAT) 2.5-2.5 MCG/ACT Aero Soln What is [...] Who is patients PCP?: Dr. Rodgers Payor: [facility]/MEDICARE PPO / Plan: [facility] MDCR-ADV PPO $0 [place] [id number] / Product Type: MEDICARE [id number] documented in this encounter Plan of Treatment Not on file documented as of this encounter Visit Diagnoses Diagnosis Pulmonary emphysema, unspecified emphysema type (HCC)- Primary documented in this encounter Care Teams Dumpman Relationship Specialty Start Date End Date Buster Murphy MD PCP - General Internal Medicine 04/27/17 documented as of this encounter
--- OUTSIDE RECORDS SUMMARY | 2024-08-09 09:20 | XMS_ITS | Clinical Summary ---
Author Organization [facility] Address [address] [place] [address] Care Team Providers Care Spa Technician Name Role Phone Buster Murphy MD Primary Care Provider [phone] Allergies No known active allergies Medications Medication [...] age to complete this topic Care Teams Spa Technician Relationship Specialty Start Date End Date Buster Murphy MD [address] [place] [address] [address] [place], [place] [id number] PCP - General Paraplanner 11/21/17
--- OUTSIDE RECORDS SUMMARY | 2024-08-09 09:20 | XMS_ITS | Encounter Summary ---
Author Organization [facility] Address [address] [place] [address] Care Team Providers Care Staff Developer Name Role Phone Buster Murphy MD Primary Care Provider Unava ilable Reason for Visit * Reason Comments E-prescribe Rx Request Encounter Details Date Type Department Care Team Description 03/22/2020 Refill Internal Medicine - [place] [address] [facility], [address] [place] [address] Adilene Rodgers MD [address] [place] [phone] E-prescribe Rx Request Social History Tobacco Use [...] (HCC) documented in this encounter Care Teams Staff Developer Relationship Specialty Start Date End Date Buster Murphy MD PCP - General Internal Medicine 04/27/17 documented as of this encounter
--- OUTSIDE RECORDS SUMMARY | 2024-08-09 09:20 | XMS_ITS | Encounter Summary ---
Author Organization [facility] Address [facility] [place] [address] Care Team Providers Care Powder Worker Name Role Phone Buster Murphy MD Primary Care Provider Unava ilable Encounter Details Date Type Department Care Team Description 03/21/2019 Release of Information Medical Records [address] [place] [id number] Abstract, Provider Social History Tobacco Use Types [...] on filedocumented in this encounter Care Teams Powder Worker Relationship Specialty Start Date End Date Buster Murphy MD PCP - General Internal Medicine 04/27/17 documented as of this encounter
--- OUTSIDE RECORDS SUMMARY | 2024-08-09 09:20 | XMS_ITS | Encounter Summary ---
Author Organization [facility] Address [facility] [place] [address] Care Team Providers Care Shoe Salesman Name Role Phone Community, Pcp Primary Care Provider Buster Medina MD Primary Care Provider Linnette fleming Encounter Details Date Type Department Care Team Description 04/05/2017 Transfer Records Medical Records [address] [place] [id number] Abstract, Provider Social History Tobacco Use Types Packs/Day Years Used Date Smoking Tobacco: Never Assessed Sex Assigned at Date Recorded Not on file documented as of this encounter Plan of Treatment Not on file documented as of this encounter Visit Diagnoses Not on filedocumented in this encounter Care Teams Shoe Salesman Relationship Specialty Start Date End Date Community, Pcp PCP - General Internal Medicine 03/24/17 04/26/17 Buster Murphy MD PCP - General Internal Medicine 04/27/17 documented as of this encounter
--- OUTSIDE RECORDS SUMMARY | 2024-08-09 09:20 | XMS_ITS | Encounter Summary ---
Author Organization [facility] Address [address] [place] [address] Care Team Providers Care Olericulture Teacher Name Role Phone Buster Murphy MD Primary Care Provider Unava ilable Reason for Visit * Reason Onset Date Comments medication problems 12/11/2018 Encounter Details Date Type Department Care Team Description 12/11/2018 Telephone Pulmonology - [place] [address] [facility] [address] [place] [address] Adilene Rodgers MD [address] [place] [address] medication problems Social History Tobacco Use Types Packs/Day Years Used Date Smoking Tobacco: Former Cigarettes 1 20 Smokeless Tobacco: Never Comments:quit at age 40 Alcohol Use Standard Drinks/Week Comments No 0 (1 standard drink = 0.6 oz pur e alcohol) Sex Assigned at Date Recorded Not on file documented as of this encounter Miscellaneous Notes * Telephone Encounter - Rigoberto Kang - 12/11/2018 3:09 PM EDT Patient is going to have a PFT on 02/28/19 and she has questions about her inhalers and their usagefor the testing. documented in this encounter Plan of Treatment Not on file documented as of this encounter Visit Diagnoses Diagnosis Pulmonary emphysema, unspecified emphysema type (HCC)- Primary documented in this encounter Care Teams Olericulture Teacher Relationship Specialty Start Date End Date Buster Murphy MD PCP - General Internal Medicine 04/27/17 documented as of this encounter
[2024-08-09 18:19] LABS: Parathyroid Hormone Intact 49.7 pg/mL (8.7-77.1)
[2024-08-09 18:24] LABS: Albumin Level 3.9 g/dL (3.5-5.0); Calcium 9.2 mg/dL (8.4-10.2); Estimated Glomerular Filt Rate > 60
[2024-08-09 18:28] LABS: TSH reflex Free T4 2.61 uIU/mL (0.32-4.0); Vitamin D 25-OH Total 100.9 ng/mL (>30)
== END 2024-08-09 08:01 | disposition home or self-care (01) ==
LOC: HO.HKASLDS 08:00
PROVIDERS: PCP Internal Medicine; Visit Provider Internal Medicine Rheumatology
DX: M81.0 Age-related osteoporosis without current pathological fracture (principal)
CPT/HCPCS: 36415; 82040; 82306; 82310; 82565; 83970; 84443; 99212

== ENCOUNTER 2024-08-09 08:00 | Outpatient (AMB) | payer MEDICARE, SELFPAY ==
[2024-08-09 08:06] VITALS: BP 130/64; PULSE 75; O2SAT 95; BMI 23.3
--- NOTE | 2024-08-09 08:06 | A.OFFVIS_ITS ---
Vital Signs 08/09/24 08:06 Height 5 ft 2.5 in Weight 129 lb 10.109 oz BMI 23.3 BP 130/64 Blood Pressure Location Lt brachial Position Sitting Pulse 75 Pulse Source Pulse Oximeter Pulse Oximetry (%) 95 Oxygen Delivery Method Room Air Intake Visit Reasons: follow up Intake Note: Patient presents for follow up on osteoarthritis. Accompanied by: Self / Same As Patient Allergies umeclidinium [From Anoro Ellipta] Allergy (Mild, Verified 08/09/24 08:06) severe eye pain and congestion vancomycin [Vancomycin] Allergy (Mild, Verified 08/09/24 08:06) RED MAN SYNDROME vilanterol [From Anoro Ellipta] Allergy (Mild, Verified 08/09/24 08:06) severe eye pain and congestion HPI HPI follow up: Details: Takes vitamin D 2000IU and 1200mg calcium from MV and diet. No dental procedures planned. No fragility fracture Tramatic nose fracture in childhood. Review of Systems Const All systems reviewed & are unremarkable except as noted in HPI and below Physical Exam Vital Signs: Last Vital Signs Pulse 75 08/09/24 08:06 BP 130/64 08/09/24 08:06 Pulse Ox 95 08/09/24 08:06 Oxygen Delivery Method Room Air 08/09/24 08:06 BMI result Body Mass Index 23.3 Const Other: General: Comfortable Skin: No lesions seen CVS: RRR Respiratory: Normal breath sounds Assessment & Plan Assessment & Plan (1) Osteoporosis: Comment: Previously treated with Reclast 07/05/2022. Reclast held in 2023 due to tooth extractions. She experienced acute phase reaction 3 days following reclast lasting 3 weeks treated with acetaminophen. Recent bone density reviewed. Bone density T scores improved in L spine (from -3.1 to -2.9) but has remained stable in left hip and left femoral neck when compared to bone density from 04/2022 [facility]. Three day course of dexamethasone substantially reduces acute phase reaction from Reclast (PMID: [id number]). Hx of GERD and hiatal hernia on PPI - contraindication to oral bisphosphonate. Code(s): M81.0 - Age-related osteoporosis without current pathological fracture Category: Medical Qualifiers: Osteoporosis type: age-related Presence of current pathological fracture: without current pathological fracture Qualified Code(s): M81.0 - Age- related osteoporosis without current pathological fracture Plan: Reclast LUISANA. Plan to do reclast yearly with reassessment after bone density 07/2026 After reclast is approved, she will be scheduled for reclast. To reduce the risk of acute phase reaction with Reclast, I will prescribe 4 mg dexamethasone for her to take 1-1/2 hours before Reclast then once a day for the following 2 days. She can take acetaminophen 500 mg or 650 mg PRN pain. If she continues to have myalgias or arthralgias after dexamethasone course has ended, she can take combination acetaminophen and NSAID. Labs ordered prior to reclast She is recieving 1200mg calcium from multivitamin and diet Continue vitamin D 2000IU daily Information on weight baring exercises given to patient RTC 1 year Orders: Orders Vitamin D 25-OH Total Today M81.0 - Age-related osteoporosis without current pathological fracture Calcium Today M81.0 - Age-related osteoporosis without current pathological fracture Albumin Level Today M81.0 - Age-related osteoporosis without current pathological fracture Creatinine Today M81.0 - Age-related osteoporosis without current pathological fracture TSH reflex Free T4 Today M81.0 - Age-related osteoporosis without current pathological fracture Parathyroid Hormone Intact Today M81.0 - Age-related osteoporosis without current pathological fracture Coding Level of Care Code Est Pt Level 4 (91960) Complex EM visit Add On G2211 Diagnoses Age-related osteoporosis without current pathological fracture M81.0 Osteoporosis type: age-related Presence of current pathological fracture: without current pathological fracture Time Spent (min) 25
--- OUTSIDE RECORDS SUMMARY | 2024-08-09 08:08 | XMS_ITS | Encounter Summary ---
Author Organization [facility] Address [address] [place] [address] Care Team Providers Care Building Construction Foreman Name Role Phone Buster Murphy MD Primary Care Provider Unava ilable Reason for Visit * Reason Onset Date Comments Call From Insurance Co 04/01/2022 Encounter Details Date Type Department Care Team Description 04/01/2022 Telephone Pulmonology - [place] [address] [facility] [address] [place] [address] Adilene Rodgers MD [address] [place] [address] Call From Insurance Co Social History Tobacco Use Types Packs/Day Years Used Date Smoking Tobacco: Former Cigarettes 1 20 Smokeless Tobacco: Never Comments:quit at age 40 Alcohol Use Standard Drinks/Week Comments No 0 (1 standard drink = 0.6 oz pur e alcohol) Sex Assigned at Date Recorded Not on file documented as of this encounter Miscellaneous Notes * Telephone Encounter - Jj Varela CMA - 04/05/2022 2:48 PM EST Form only needs Dr. Rodgers signature to send. * Telephone Encounter - Adilene Rodgers MD - 04/05/2022 1:37 PM EST Done- on your desk * Telephone Encounter - Jj Varela CMA - 04/02/2022 2:[address] Ana Maria chao * Telephone Encounter - Danielle Higginbotham - 04/01/2022 3:44 PM EST Fax came in from [facility] Medicare Advantage Request; in regards to Spiriva Handihaler Capsule. will give the form to [place] documented in this encounter Plan of Treatment Not on file documented as of this encounter Visit Diagnoses Not on filedocumented in this encounter Care Teams Building Construction Foreman Relationship Specialty Start Date End Date Buster Murphy MD PCP - General Internal Medicine 04/27/17 documented as of this encounter
--- OUTSIDE RECORDS SUMMARY | 2024-08-09 08:08 | XMS_ITS | Clinical Summary ---
Author Organization [facility] Address [address] [place] [address] Phone Care Team Providers Care Magnet Placer Name Role Phone Buster Murphy MD Primary Care Provider [phone] Allergies Active Allergy Reactions Criticality Noted Date Comments Tiotropium [place] 10/12/2016 Denies Umeclidinium-Vilanterol 10/12/2016 Vancomycin 08/20/2021 Medications polyethylene glycol (PEG) 17 gram/dose oral powder Take 17 g by mouth. 1 Active albuterol HFA (PROAIR HFA ; PROVENTIL HFA ; VENTOLIN HFA) 90 mcg/actuation inhaler Inhale 2 puffs every 6 (six) hours if needed for wheezing or shortness of breath. 1 Active temazepam (RESTORIL) 7.5 mg capsule Take 1 capsule (7.5 mg total) by mouth at bedtime as needed for sleep. Max Daily Amount: 7.5 mg Active cholecalciferol (VITAMIN D-3) 50 mcg (2,000 unit) capsule Take 1 capsule (2,000 Units total) by mouth 1 (one) time each day. Active esomeprazole (NexIUM) [address] capsule Take 1 capsule (20 mg total) by mouth 1 (one) time each day before breakfast. 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 Overview (06/22/2023): S/p treatment with methotrexate 1026-1217 Vocal cord dysfunction 10/12/2016 Asthma 10/12/2016 Allergic rhinitis 01/29/2014 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 Eczema 04/24/2013 Encounters Date Type Department Care Team Description 05/28/2024 Telephone Gastroenterology - [address] [place] [address] Lanette Mansfield MA from Last 3 Months Immunizations Name Administration Dates Next Due Influenza trivalent, 0.5mL, preservative free (Fluarix; FluLaval; Fluzone) ages 6mo and older (Afluria) 3 years and older 12/25/2013 Pneumococcal conjugate 13 va lent (Prevnar 13, PCV13) 2mo and older 03/31/2015 Surgical History Surgery Date Site/Laterality Comments OTHER SURGICAL HISTORY PROCEDURE: ---- OTHER ----; COMMENT: partial colectomy TUBAL LIGATION PROCEDURE: HISTORICAL TUBAL LIGATION Medical History Medical History Date Comments GERD (gastroesophageal reflu x disease) 10/12/2016 DX:GERD (gastroesophageal re flux disease) Asthma 10/12/2016 DX:Asthma 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 DX:Ocular pemphigoid; COMMENT: S/p treatment with methotrexate 0301-1117 Allergic rhinitis 01/29/2014 DX:Allergic rh initis Chronic obstructive pulmonar y disease ([facility] V24, [facility] V28) 01/13/2017 DX:Chronic obstructive pulm onary disease ([facility]) Eczema 04/24/2013 DX:Eczema 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 DX:Idiopathic peripheral neuropathy Vocal cord dysfunction 10/12/2016 DX:Vocal cord dysfunction Social History Tobacco Use Types Packs/Day Years Used Date Smoking Tobacco: Former Cigarettes Smokeless Tobacco: Never Alcohol Use Standard Drinks/Week Comments No 0 (1 standard drink = 0.6 oz pur e alcohol) Comments Unknown Sex and Gender Information Value Date Recorded Sex Assigned at Not on file Legal Sex Female 7:03 AM EST Gender Identity Not on file Sexual Orientation Not on file Obstetrics History Last Filed Vital Signs Vital Sign Reading Time Taken Comments Blood Pressure 128/64 08/31/2023 9:51 AM EDT Sitting L Arm Pulse 80 08/31/2023 9:51 AM EDT Temperature - - Respiratory Rate - - Oxygen Saturation - - Inhaled Oxygen Concentration - - Weight 58.4 kg (128 lb 12.8 oz) 08/31/2023 9:51 AM EDT Height 160 cm (5' 3 ) 08/31/2023 9:51 AM EDT Body Mass Index 22.82 08/31/2023 9:51 AM EDT Plan of Treatment Health Maintenance Due Date Last Done Comments DTaP,Tdap,and Td Vaccines (1 - Tdap) 1969 RSV Immunization Adult Patients (1 - Risk 60-74 years 1-dose series) 2010 Pneumococcal Vaccine: 50+ Years (2 of 2 - PPSV23) 05/26/2015 03/31/2015 Breast Cancer Screening 01/01/2022 01/02/2020, 08/17 Colorectal Cancer Screening: Colonoscopy 03/27/2022 Depression Screening 03/27/2022 Falls Risk Assessment 03/27/2022 Hepatitis C Screening 03/27/2022 Medicare Annual Wellness Visit 03/27/2022 Social Influencers of Health Screening 03/27/2022 COVID-19 Vaccine ( season) 2024 12/22/2023, 02/01/2023, 01/15/2022, Additional history exists Cholesterol Screening (Lipid Panel) 03/08/2029 03/08/2024 Osteoporosis Screening (Bone Density Screening) 01/01/2030 01/02/2020, 08/17/2017 Zoster Vaccines Completed 01/13/2019, 05/20/2018 Influenza Vaccine Completed 02/16/2024, , 02/07/2020, Additional history exists HIB Vaccines Aged Out No longer eligi ble based on patient's age to complete this topic HPV Vaccines Aged Out No longer eligi ble based on patient's age to complete this topic Hepatitis A Vaccines Aged Out No long er eligible based on patient's age to complete this topic Hepatitis B Vaccines Aged Out No long er eligible based on patient's age to complete this topic IPV Vaccines Aged Out No longer eligi ble based on patient's age to complete this topic MMR Vaccines Aged Out No longer eligi ble based on patient's age to complete this topic Meningococcal ACWY Vaccine Aged Out N o longer eligible based on patient's age to complete this topic Meningococcal B Vaccine Aged Out No l onger eligible based on patient's age to complete this topic RSV Immunization Patients Under 20 months Aged Out No longer eligible based on patient's age to complete this topic Varicella Vaccines Aged Out No longer eligible based on patient's age to complete this topic Procedures Procedure Name Priority Date/Time Associated Diagnosis Comments LIPID PANEL WITH REFLEX TO DIRECT LDL Routine 03/08/2024 2:57 PM EST Routine general medical examination at a health care facility [facility] SCREENING DIGITAL Routine 01/02/2020 4:42 PM EDT Encounter for screening mammogram for malignant neoplasm of breast [facility] DEXA AXIAL SKELETON Routine 01/02/2020 3:34 PM EDT Encounter for screening for osteoporosis from Last 3 Months or Most Recently Relevant to Health Maintenance Results * (ABNORMAL) Lipid panel with reflex to direct LDL (03/08/2024 2:57 PM EST) Cholesterol 242(H) 0 - 200 mg/dL LAB CHEMISTRY METHOD 03/08/2024 6:50 PM [facility] Triglycerides 195(H) 0 - 150 mg/dL LAB CHEMISTRY METHOD 03/08/2024 6:[address] [facility] HDL 59 >=40 mg/dL LAB CHEMISTRY METHOD 03/08/2024 6:[address] [facility] LDL Calculated 144(H) 0 - 100 mg/dL LAB CHEMISTRY METHOD 03/08/2024 6:[address] [facility] VLDL Cholesterol Sal 39 mg/dL LAB CHEMISTRY METHOD 03/08/2024 6:[address] [facility] Non HDL Chol. (LDL+VLDL) 183(H) <145 mg/dL LAB CHEMISTRY METHOD 03/08/2024 6:[address] [facility] Chol/HDL Ratio 4.1 0.0 - 4.4 LAB CHEMISTRY METHOD 03/08/2024 6:[address] [facility] Blood Venous blood specimen / Unknown Venipuncture / Unknown 03/08/2024 2:57 PM EST 03/08/2024 2:57 PM EST us Karel An MD LAB BLOOD ORDERABLES Final Res ult [facility] [address] [place] [address], * ELIJAH SCREENING DIGITAL (01/02/2020 4:42 PM EDT) Anatomical Region Laterality Modality Mammography 01/02/2020 3:00 PM EDT Narrative 01/02/2020 4:42 PM EDT [facility] Diagnostic Imaging Department [address] [place] [address] Patient: ??CONNIE EATON ?/Age/Sex: 1950 - 69 - F Unit#: ??[id number] ? Location/Status: ??SPDIMAM/REG CLI ? Mnemonic/Ordering Site: ??DIGSC/SPMAM Ordering Physician: ??KANG MANCIA MD Elijah Screening Digital - 01/02/20 - 1531 INDICATION: SCREENING COMPARISON: [facility] mammograms dating back to ?? 03/27/2014 TECHNIQUE: CC and MLO views of the breasts were obtained, using full field digital mammography with 3D tomosynthesis views in the MLO projection. Computer aided detection with the NanoPack 7.2-H was employed. FINDINGS: The breasts contain heterogeneously dense tissues, which may lower sensitivity of mammography in this patient. ??Metallic marker again visualized on the right. No suspicious masses, suspicious microcalcifications, or areas of architectural distortion are identified. ??Benign-appearing breast calcifications are present bilaterally. There are no secondary signs of breast malignancy. ??Compared to the prior exam, no adverse interval change. IMPRESSION: ??No specific mammographic evidence of breast malignancy. Lack of an imaging correlate should not deter or delay biopsy of a clinically significant palpable finding. BI-RADS ??- Category 2 - Benign finding 3342F, 7025F Annual screening mammography is recommended. Patient entered into a reminder system with a target date for the next mammogram. (G0202 / [id number]) , ??[id number] Dictating Physician: ??TUYET SPANN MD Electronically Signed by: ??TUYET SPANN MD Dic Date/Time: ??01/02/20 1638 Sign date/Time: ??01/02/20 1642 Procedure Note Tuyet Spann MD - 04/07/2022 [facility] Diagnostic Imaging Department [address] [place] [address] Patient: CONNIE EATON Antonette /Age/Sex: 1950 - 69 - F Unit#: [id number] Location/Status: SPDIMAM/REG CLI Mnemonic/Ordering Site: DIGSC/SPMAM Ordering Physician: KANG MANCIA MD Elijah Screening Digital - 01/02/20 - 1531 INDICATION: SCREENING COMPARISON: [facility] mammograms dating back to 03/27/2014 TECHNIQUE: CC and MLO views of the breasts were obtained, using full field digital mammography with 3D tomosynthesis views in the MLO projection. Computer aided detection with the NanoPack 7.2-H was employed. FINDINGS: The breasts contain heterogeneously dense tissues, which may lowersensitivity of mammography in this patient. Metallic marker again visualized on theright. No suspicious masses, suspicious microcalcifications, or areas ofarchitectural distortion are identified. Benign-appearing breast calcifications arepresent bilaterally. There are no secondary signs of breast malignancy. Comparedto the prior exam, no adverse interval change. IMPRESSION: No specific mammographic evidence of breast malignancy. Lack of an imaging correlate should not deter or delay biopsy of aclinically significant palpable finding. BI-RADS - Category 2 - Benign finding 3342F, 7025F Annual screening mammography is recommended. Patient entered into a reminder system with a target date for the next mammogram. G0202 / [id number]) , [id number] Dictating Physician: TUYET SPANN MD Electronically Signed by: TUYET SPANN MD Dic Date/Time: 01/02/20 1638 Sign date/Time: 01/02/20 1642 us Kang Mancia MD IMG BI PROCEDURES Final Re sult * ELIJAH DEXA AXIAL SKELETON (01/02/2020 3:34 PM EDT) Anatomical Region Laterality Modality Mammography 01/02/2020 2:59 PM EDT Narrative 01/02/2020 3:34 PM EDT [facility] Diagnostic Imaging Department [address] [place] [address] Patient: ??CONNIE EATON ?/Age/Sex: 1950 - 69 - F Unit#: ??[id number] ? Location/Status: ??SPDIMAM/REG CLI ? Mnemonic/Ordering Site: ??MAMDEXAAX/SPMAM Ordering Physician: ??KANG MANCIA MD Elijah Dexa Axial Skeleton - 01/02/20 153 HISTORY: ??The patient is a 69-year-old postmenopausal female on chronic glucocorticoid therapy, with clinical concern for metabolic bone disease. FINDINGS: ??Dual energy x-ray absorptiometry of the lumbar spine and femurs is performed. The mean bone mineral density at L1-L4 is 0.822 gm/cm2 which is 70% of that of young normals and 87% of that of age matched controls. This yields a T-score of -3.0 and a Z-score of -1.0 which is diagnostic of osteoporosis. The mean bone mineral density of the femurs bilaterally is 0.79 gm/cm2 which is 78% of that of young normals and 99% of that of age matched controls. ??This yields a T-score of -1.7 and a Z-score of -0.1 which is diagnostic of osteopenia. IMPRESSION: 1. Osteoporosis. ??There has been an increase of 2.8% in bone mineral density in the lumbar spine since the prior examination of 08/17/2017. ??There has been a decrease of 8.7% in bone mineral density in the right femur and a decrease of 2.4% in bone mineral density in the left femur. 2. FRAX analysis yields a 10-year probability of major osteoporotic fracture of 26.5% and a 10-year probability of hip fracture of 7.5%. Code 44152 Dictating Physician: ??JARRET MARTINEZ MD Electronically Signed by: ??JARRET MARTINEZ MD Dic Date/Time: ??01/02/20 153 Sign date/Time: ??01/02/20 153 Procedure Note Jarret Martinez MD - 04/07/2022 [facility] Diagnostic Imaging Department [address] [place] [address] Patient: CONNIE EATON./Age/Sex: 1950 - 69 - F Unit#: [id number] [facility] Ordering Physician: KANG MANCIA MD Elijah Dexa Axial Skeleton - 01/02/20 - 1530 HISTORY: The patient is a 69-year-old postmenopausal female on chronic glucocorticoid therapy, with clinical concern for metabolic bonedisease. FINDINGS: Dual energy x-ray absorptiometry of the lumbar spine and femursis performed. The mean bone mineral density at L1-L4 is 0.822 gm/cm2 which is70% of that of young normals and 87% of that of age matched controls. Thisyields a T-score of -3.0 and a Z-score of -1.0 which is diagnostic ofosteoporosis. The mean bone mineral density of the femurs bilaterally is 0.79 gm/ia2iqftc is 78% of that of young normals and 99% of that of age matched controls.This yields a T-score of -1.7 and a Z-score of -0.1 which is diagnostic of osteopenia. IMPRESSION: 1. Osteoporosis. There has been an increase of 2.8% in bone mineraldensity in the lumbar spine since the prior examination of 08/17/2017. There has bisi decrease of 8.7% in bone mineral density in the right femur and a decreaseof 2.4% in bone mineral density in the left femur. 2. FRAX analysis yields a 10-year probability of major osteoporoticfracture of 26.5% and a 10-year probability of hip fracture of 7.5%. Code 77720 Dictating Physician: JARRET MARTINEZ MD Electronically Signed by: JARRET MARTINEZ MD Dic Date/Time: 01/02/201532 Sign date/Time: 01/02/201533 Kang Mancia MD IMG BI PROCEDURES Final Re sult from Last 3 Months or Most Recently Relevant to Health Maintenance Insurance [employer] [place] MEDIC[place] AD[place]ANTAGE Care Teams Magnet Placer Relationship Specialty Start Date End Date Buster Murphy MD [address] [place] [address] [facility] [place], [place] PCP - General Internal Medicine 04/27/17
--- OUTSIDE RECORDS SUMMARY | 2024-08-09 08:08 | XMS_ITS | Encounter Summary ---
Author Organization [facility] Address [address] [place] [address] Care Team Providers Care Rotary Drill Operator Name Role Phone Buster Murphy MD Primary Care Provider Unava ilable Reason for Visit * Reason Onset Date Comments refill request 04/30/2021 Encounter Details Date Type Department Care Team Description 04/30/2021 Refill Pulmonology - [place] [address] [facility] [address] [place] [address] Adilene Rodgers MD [address] [place] [address] refill request Social History Tobacco Use Types Packs/Day Years Used Date Smoking Tobacco: Former Cigarettes 1 20 Smokeless Tobacco: Never Comments:quit at age 40 Alcohol Use Standard Drinks/Week Comments No 0 (1 standard drink = 0.6 oz pur e alcohol) Sex Assigned at Date Recorded Not on file documented as of this encounter Miscellaneous Notes * Telephone Encounter - Carol Johnston - 04/30/2021 4:34 PM EST Please review and advise that medication refill is correct Inhaler capsles pended * Telephone Encounter - Ambreen Chengdawitgrecia - 04/30/2021 12:32 PM EST Patient would like script to be: E-PRESCRIBED/FAXED TO PHARMACY WHEN WAS THE PATIENT'S LAST APPOINTMENT WITH THE PRESCRIBING PROVIDER? 07/14/20 Does patient have an upcoming appointment? Yes 08/19/21 (THE MEDICATION REQUESTED IS ON THE MED LIST ABOVE) All of the medications requested were on the CURRENT MEDS list Did you check the Pharmacy information above?: YES Patient wants: 90 -day supply (patient requested a 90 day refill) Is this a mail order prescription request ? NO Patients current insurance carrier is: Payor: [facility]/MEDICARE PPO / Plan: [facility] MDCR-ADV PPO $20/$40 [place] / Product Type: MEDICARE [id number] documented in this encounter Plan of Treatment Not on file documented as of this encounter Visit Diagnoses Diagnosis Pulmonary emphysema, unspecified emphysema type (HCC) documented in this encounter Care Teams Rotary Drill Operator Relationship Specialty Start Date End Date Buster Murphy MD PCP - General Internal Medicine 04/27/17 documented as of this encounter
--- OUTSIDE RECORDS SUMMARY | 2024-08-09 08:08 | XMS_ITS | Encounter Summary ---
Author Organization [facility] Address [address] [place] [address] Care Team Providers Care Manager Copy Name Role Phone Buster Murphy MD Primary Care Provider Unava ilable Reason for Visit * Reason Onset Date Comments Faxed Refill 02/16/2023 Encounter Details Date Type Department Care Team Description 02/16/2023 Refill Pulmonology - [place] [address] [facility] [address] [place] [address] Adilene Rodgers MD [address] [place] [phone] Faxed Refill Social History Tobacco Use Types Packs/Day Years Used Date Smoking Tobacco: Former Cigarettes 1 20 Smokeless Tobacco: Never Comments:quit at age 40 Alcohol Use Standard Drinks/Week Comments No 0 (1 standard drink = 0.6 oz pur e alcohol) Sex Assigned at Date Recorded Not on file documented as of this encounter Miscellaneous Notes * Telephone Encounter - Karyn Caal - 02/16/2023 2:25 PM EDT Pharmacy coments: alternative reguested PT wants new RX for Brand name only * Telephone Encounter - Karyn Caal - 02/16/2023 2:23 PM EDT Received fax from [facility] pharmacy For Tiotropim 18 mcg inhaler Nov 08/31/23 [place] 08/25/22 documented in this encounter Plan of Treatment Not on file documented as of this encounter Visit Diagnoses Diagnosis Pulmonary emphysema, unspecified emphysema type (HCC) documented in this encounter Care Teams Manager Copy Relationship Specialty Start Date End Date Buster Murphy MD PCP - General Internal Medicine 04/27/17 documented as of this encounter
--- OUTSIDE RECORDS SUMMARY | 2024-08-09 08:08 | XMS_ITS ---
Author Organization [facility] Address [address] [place] [address] Care Team Providers Care Trailer Mechanic Name Role Phone KIELVICTORINO Primary Care Provider Ricarda Worley Unavailable [phone] Allergies Allergen (clinical drug ingredient) Drug/Non Drug Allergy documented on EMR Reaction Allergy Type Onset Date Status vancomycin Vancomycin HCl Skin Rash Drug Allergy A ctive ethinyl estradiol / segesterone Annovera Unknown Drug Allergy Active Penicillin Skin Rash Drug Allergy Active REASON FOR VISIT HR MEDICARE PE, Annual SPECIMEN BOSS Physical 60-85+ Medications Medication SIG (Take, Route, Frequency, Duration) Notes Start Date End Date Status Zeasorb Active Spiriva HandiHaler 18 MCG 1 capsule Inhalation twice a day Active Norvasc 2.5 MG 1 tablet Orally Once a day Active Temazepam 7.5 MG Oral for 30 Days Active Clotrimazole-Betamethas one 1-0.05 % 1 application to affected area Externally Twice a day for 14 days 08/23/2023 Not-Taki ng Multi For Her - as directed Orally Active NexIUM 20 MG 1 capsule Orally Onc e a day Osmin-MJ 02/19/2011 Active APAP Active Vitamin D3 50 MCG (1999) 1 capsule Orally Once a day Active Social History Tobacco Use: Social History Observation Description Date Details (start date - stop date) Former Smoker NA - NA AUDIT-C (Standard) Question Answer Notes Did you have a drink contain ing alcohol in the past year? Yes How often did you have a dri nk containing alcohol in the past year? Never (0 point) How many drinks did you have on a typical day when you were drinking in the past year? 1 or 2 drinks (0 point) How often did you have six o r more drinks on one occasion in the past year? Less than monthly (1 point) Points 1 Interpretation Negative Tobacco Control (Standard) Question Answer Notes Tobacco use: Former smoker How long has it been since you last smoked? Grea ter than 10 years Problems Problem Type SNOMED Code ICD Code Onset Dates Problem Status W/U Status Risk Notes Problem Essential hypertension (77176453) Essential (primary) hypertension (I10) Active confirmed Problem Hypertrophy of breast (555024494) Hypertrophy of breast (N62) Active confirmed Problem Cervicalgia (59884443) Cervicalgia (M54.2) Active confirmed Vital Signs Temperature 97.4 degrees Fahrenheit 05/24/19 25 Blood pressure systolic 134 mm Hg 05/24/19 25 Blood pressure diastolic 80 mm Hg 025 Height 64 in 05/24/2024 Weight 128 lbs 05/24/2024 BMI 21.97 kg/m2 05/24/2024 Encounters Encounter Location Date Provider Diagnosis [address] [address] 05/24/2024 Ricarda Mancia Encounter for gynecological examination (general) (routine) without abnormal findings Z01.419 ; Encounter for screening mammogram for malignant neoplasm of breast Z12.31 ; Age-related osteoporosis without current pathological fracture M81.0 ; Hypertrophy of breast N62 and Cervicalgia M54.2 Assessments Encounter Date Diagnosis (ICD Code) Assessment Notes Treatment Notes Treatment Clinical Notes Section Notes 05/24/2024 Encounter for gynecological examination (general) (routine) without abnormal findings (ICD-10 - Z01.419) NO MORE PAP TESTS. 05/24/2024 Encounter for screening mammogram for malignant neoplasm of breast (ICD-10 - Z12.31) REGULAR MAMMOGRAMS AND SBE'S WERE RECOMMENDED. 05/24/2024 Age-related osteoporosis without current pathological fracture (ICD-10 - M81.0) DISCUSSED HER LAST BMD RESULTS AND OSTEOPOROSIS AND ITS IMPACT ON HER HEALTH. ADEQUATE CALCIUM AND VIT D. WEIGHT BEARING EXERCISES. OSTEO PRECAUTIONS. REFER BACK TO LINE OUT MAN. REPEAT BMD THIS YEAR. 05/24/2024 Hypertrophy of breast (ICD-10 - N62) DISCUSSED LARGE BREASTS CAUSING BACK AND NECK PAINS. DISCUSSED HOW COMMON THIS PROBLEM HAS BEEN. RECOMMENDED SHE SEE A PLASTIC SURGEON LIKE DR LARRY KIRK OR DR ISSA GALLARDO FOR EVALUATION AND MX. 05/24/2024 Cervicalgia (ICD-10 - M54.2) PAT HAS NECK PAINS DUE TO LARGE BREASTS PULLONG HER NECK AND OTHER SUPPORT ISSUES DOWN. BEST RECOURSE IS BREAST REDUCTION SURGERY. REFER TO CHRISTINE GALLARDO OR NANDINI. Plan Of Treatment Treatment Notes Assessment Notes Encounter for gynecological examination (general) (routine) without abnormal findings NO MORE PAP TESTS. Encounter for screening mamm ogram for malignant neoplasm of breast REGULAR MAMMOGRAMS AND SBE'S WERE RECOMMENDED. Age-related osteoporosis wit hout current pathological fracture DISCUSSED HER LAST BMD RESULTS AND OSTEOPOROSIS AND ITS IMPACT ON HER HEALTH. ADEQUATE CALCIUM AND VIT D. WEIGHT BEARING EXERCISES. OSTEO PRECAUTIONS. REFER BACK TO LINE OUT MAN. REPEAT BMD THIS YEAR. Hypertrophy of breast DISCUSSED LARGE BREASTS CAUSING BACK AND NECK PAINS. DISCUSSED HOW COMMON THIS PROBLEM HAS BEEN. RECOMMENDED SHE SEE A PLASTIC SURGEON LIKE DR LARRY KIRK OR DR ISSA GALLARDO FOR EVALUATION AND MX. Cervicalgia PAT HAS NECK PAINS DUE TO LARGE BREASTS PULLONG HER NECK AND OTHER SUPPORT ISSUES DOWN. BEST RECOURSE IS BREAST REDUCTION SURGERY. REFER TO CHRISTINE GALLARDO OR NANDINI. Pending Test Test Name Order Date MAMMOGRAM, SCREENING 05/24/2024 BONE DENSITY 05/24/2024 MM Digital Mammo Screening 05/24/2024 Next Appt Details Follow Up: 1 Year, Reason: Provider Name:Ricarda davis, 05/29/2025 10:20:00 AM, [address] [place] [address], [address], [place], [address], Progress Notes * SITA EATONDOB:1950 (74 yo F)Acc No.[id number]:05/24/2024 PROGRESS NOTES Patient:?SITA EATON Appointment Provider:?Ricarda davis M.D. :1950???Age:74 Y???Sex:Female D ate:05/24/2024 Address:[address] [place], [place] [id number] Pcp:VICTORINO DYSON Subjective: * Chief Complaints: * ???HR MEDICARE PEAnnual SPECIMEN BOSS Physical 60-85+ * HPI: ???New/Follow-up Patient Consult:? PAT ENTERED MENOPAUSE IN 2000.? SHE IS NOT SEXUALLY ACTIVE.? HER HAS PROSTATE CA. SHE C/O PERSISTENT NECK AND SHOULDER PAINS DUE TO LARGE BREASTS.? SHE NOW WEARS A 36 E BRA AND OFTEN NEEDS TO TAKE NSAIDS FOR PAINS.? SHE IS INTERESTED IN BREAST REDUCTION. SHE IS KNOWN TO HAVE INTERTRIGO UNDER BOTH BREASTS AND HAD BEEN TREATED WITH ZEASORB POWDER AND LOTRISONE.? THIS HAS RESOLVED. SHE IS ALSO KNOWN TO BE OSTEOPOROTIC AND SEES AND LINE OUT MAN WHO IS NOW AFFILIATED WITH [facility], DR BANDA.? SHE WAS ON RECLAST BUT THIS WAS TEMPORARILY DISCONTINUED WHEN SHE HAD DENTAL ISSUES.? HER LAST BMD IN 2022 SHOWED THE LOWEST T-SCORE TO BE -3.1 AT [facility]. HER LAST MAMMOGRAM DONE IN MAY 2023 SHOWED DENSE BREASTS AND WAS NORMAL.? HER LIFETIME BREAST CA RISK IS 8.8%. HER LAST PAP TEST IN 2018 WAS NEGATIVE AND HPV NEGATIVE.? SHE HAS NO HX OF ABNORMAL PAP TESTS. SHE HAD A COLONOSCOPY DONE IN [address] BARNES TO SCHEDULE ANOTHER ONE THIS YEAR. ???Annual:? Patient presents for annual exam, ages 60-85, postmenopausal. ?General Health Maintenance:?Current breast complaints:?no breast pain, mass, discharge, or skin changes ?Urinary problems:?patient reports no urinary health problems or bowel health problems ?Calcium intake:?takes adequate calcium via diet and supplementation ?Significant SPECIMEN BOSS problems:?no significant benefits advisor symptoms or problems * ROS:?general:?no?chest pain.?no?palpitations.?no?headache.?no?cough.?no?shortness of breath.?no?fever.?no?unexplained weight loss.?no?nausea/vomiting.?no?change in bowel movements.?no blood in stool.?no?genitourinary complaints.?no?skin complaints.? * Medical History:? * Sybase Developer History:?/ Para?3/2.?Sexual activity?currently sexually active.?Last Pap Smear:?11/22/18 NIL, NEG HRHPV, 01/01/2015, neg, NEG HRHPV.?Mammogram:?06/01/23 50-75% density, 05/24/22 Unilat Right < 50% density, 05/21/21 50-75% density, 01/02/20 50-75% density, 09/08/18 Diagnostic 50-75% density, 05/19/16 50-75% density, 05/07/2015 normal, 03/18/14, < 50% density.?LMP and menses?[place].? Control:?Bilateral Tubal Ligation.?Menopause: ?Began at age: ?52 ???Colonoscopy?2013.?Bone Density:?05/05/22, 01/02/20, 08/17/17, 05/07/2015.?SPECIMEN BOSS HISTORY MISC.?05/25/16 Dense Breast Questionairre Mailed to Patient to Complete and Return to Office to Calculate Risk. 07/07/16 Beverly Score Lifetime Risk = 8.8%.? * OB History:?Total pregnancies?3.?Total living children?2.?NVD?2.? * Surgical History:?Bilateral Tubal Ligation Cholecystectomy Colonoscopy Left Thyroidectomy Right Hip Replacement neursym in Hand Bilateral Leg Vein Surgery * Hospitalization/Major Diagno stic Procedure:?2 Vaginal Deliveries ER Visit - Hypertension * Family History:?Mother: dece ased 84 yrs, Coronary Artery Disease.?Father: , In his 70's, Throat Cancer.? Brother: Lymphoma @ 19 yo Maternal Cousin: Breast Cancer Maternal 3rd Cousin: Colon Cancer. * Social History:?Tobacco Use:?Tobacco Control (Standard)?Tobacco use:?Former smoker ?How long has it been since you last smoked??Greater than 10 years ???Sexual History:?Sexual History?Had sex in the past 12 months (vaginal, oral, or anal)?: Yes, with: Men only, Prevention strategies discussed:: Other.?Details of Sexual History?Are you sexually active??Yes ???Drugs/Alcohol:?Drugs?Have you used drugs other than those for medical reasons in the past 12 months??No ???Miscellaneous:?Children: yes, 2. ?Domestic violence: no. ?Exercise: yes, walking. ?Home smoke detector use: yes. ?Living with: spouse. ?Marital status: . ?Natural support system: yes. ?Occupation: Works full-time. ?Sexual abuse: no. ?Sexually active: yes, monogamous relationship. ?Verbal abuse: no. ???Drug/Alcohol:?AUDIT-C (Standard)?Did you have a drink containing alcohol in the past year??Yes ?How often did you have a drink containing alcohol in the past year??Never (0 point) ?How many drinks did you have on a typical day when you were drinking in the past year??1 or 2 drinks (0 point) ?How often did you have six or more drinks on one occasion in the past year??Less than monthly (1 point) ?Points?1 ?Interpretation?Negative * Medications:?TakingZeasorb N orvasc 2.5 MG Tablet 1 tablet Orally Once a day Spiriva HandiHaler 18 MCG Capsule 1 capsule Inhalation twice a day Temazepam 7.5 MG Capsule Oral Multi For Her - Tablet as directed Orally APAP NexIUM 20 MG Capsule Delayed Release 1 capsule Orally Once a day , Notes to Pharmacist: Osmin-MJVitamin D3 50 MCG (2000 UT) Capsule 1 capsule Orally Once a day Taking Zeasorb Taking Norvasc 2.5 MG Tablet 1 tablet Orally Once a day Taking Spiriva HandiHaler 18 MCG Capsule 1 capsule Inhalation twice a day Taking Temazepam 7.5 MG Capsule Oral Taking Multi For Her - Tablet as directed Orally Taking APAP Taking NexIUM 20 MG Capsule Delayed Release 1 capsule Orally Once a day , Notes to Pharmacist: [place] Vitamin D3 50 MCG (1999) Capsule 1 capsule Orally Once a day Jri-KhpycsAsvjthyostmv-Npbsmfpwkbuxj 1- 0.05 % Cream 1 application to affected area Externally Twice a day Medication List reviewed and reconciled with the patientNot-Taking Clotrimazole-Betamethasone 1-0.05 % Cream 1 application to affected area Externally Twice a day Medication List reviewed and reconciled with the patient * Allergies:?Vancomycin HCl: S kin Rash - AllergyPenicillin: Skin Rash - AllergyAnnovera: Allergyno[Allergies Verified] Objective: * Vitals:?Ht: 64 in, Wt: 128 l bs, BMI:21.97Index, BP: 134/80 mm Hg, Temp: 97.4 F. * Examination: ???General Exam: ?CONSTITUTIONAL:?General Appearance:?alert, in no acute distress, normal, well nourished ?NECK/THYROID:?Inspection/Palpation:?normal ?Thyroid:?normal size and shape ?RESPIRATORY:?Auscultation: clear to auscultation bilaterally, Respiratory Effort: normal.?CARDIOVASCULAR:?Auscultation: regular rate and rhythm.?BREAST, Right:?Inspection/Palpation:?no discharge, no masses present, no nipple retraction, no skin changes, no skin dimpling, no tenderness, no lymphadenopathy, no axillary mass, no axillary tenderness ?BREAST, Left:?Inspection/Palpation:?no discharge, no masses present, no nipple retraction, no skin changes, no skin dimpling, no tenderness, no lymphadenopathy, no axillary mass, no axillary tenderness ?GASTROINTESTINAL:?Abdomen:?no masses, nontender, nondistended ?Liver and Spleen:?normal ?Hernias:?no hernias present, no inguinal adenopathy ?MUSCULOSKELETAL:?Inspection/Palpation:?no clubbing, cyanosis, or edema ?SKIN:?Skin:?normal ?NEURO/PSYCH:?Orientation:?time , place, person ?Mood/Affect:?normal?Genitourinary: ?EXTERNAL GENITALIA:?External Genitalia:?normal, no lesions ?VAGINA:?Vagina:?normal appearance, no abnormal discharge, no lesions ?BLADDER:?Bladder:?no mass, nontender ?URETHRA:?Urethra:?no erythema or lesions present ?CERVIX:?Cervix:?no lesions, nontender ?UTERUS:?Uterus:?nontender, normal contour, normal mobility, normal size ?ADNEXA:?Adnexa:?no masses, no tenderness ?ANUS AND PERINEUM:?Anus/Perineum:?visually normal??? Assessment: * Assessment: 1.?Encounter for gynecologic al examination (general) (routine) without abnormal findings - Z01.419???2.?Encounter for screening mammogram for malignant neoplasm of breast - Z12.31???3.?Age-related osteoporosis without current pathological fracture - M81.0???4.?Hypertrophy of breast - N62???5.?Cervicalgia - M54.2??? Plan: * Treatment: 2.?Encounter for screening m ammogram for malignant neoplasm of breast?Imaging: MM Digital Mammo Screening Notes: REGULAR MAMMOGRAMS AND SBE'S WERE RECOMMENDED.?? 3.?Age-related osteoporosis without current pathological fracture?Imaging: BONE DENSITY Notes: DISCUSSED HER LAST BMD RESULTS AND OSTEOPOROSIS AND ITS IMPACT ON HER HEALTH. ADEQUATE CALCIUM AND VIT D. WEIGHT BEARING EXERCISES. OSTEO PRECAUTIONS. REFER BACK TO LINE OUT MAN. REPEAT BMD THIS YEAR.?? 4.?Hypertrophy of breast? Notes: DISCUSSED LARGE BREASTS CAUSING BACK AND NECK PAINS. DISCUSSED HOW COMMON THIS PROBLEM HAS BEEN. RECOMMENDED SHE SEE A PLASTIC SURGEON LIKE DR LARRY KIRK OR DR ISSA GALLARDO FOR EVALUATION AND MX.?? 5.?Cervicalgia? Notes: INNA HAS NECK PAINS DUE TO LARGE BREASTS PULLONG HER NECK AND OTHER SUPPORT ISSUES DOWN. BEST RECOURSE IS BREAST REDUCTION SURGERY. REFER TO CHRISTINE GALLARDO OR NANDINI.?? * Imaging:? * ?Imaging: MAMMOGRAM, SCR EENING * Procedure Codes:? * Preventive Medicine:? ??YOUR PREVENTIVE WELLNESS PLAN:?Osteoporosis prevention?Calcium, D, strength training.?Breast Cancer Screening (Mammogram):?annually.?Cervical Cancer Screening (Pap Smear):?q 3 years with HPV screen.?Colorectal Cancer Screening:?q 10 years.? * Follow Up:?1 Year * Images: Billing Information: * Visit Code:? [id number] Preventive Care Est Pt. Age 65 and over. * Procedure Codes:? * Sign off status: Completed true * Appointment Provider:?Ricarda Mancia M.D. Date:?05/24/2024 Generated for Amauri davila/Laila/eTtobysmitting on:?08/09/2024 08:08 AM EDT History and Physical Notes * HPI (History of Present Illness) Category Sub-Category Detail Notes Category Not es New/Follow-up Patient Consult PAT ENTERED MENOPAUSE IN 2000. SHE IS NOT SEXUALLY ACTIVE. HER HAS PROSTATE CA. SHE C/O PERSISTENT NECK AND SHOULDER PAINS DUE TO LARGE BREASTS. SHE NOW WEARS A 36 E BRA AND OFTEN NEEDS TO TAKE NSAIDS FOR PAINS. SHE IS INTERESTED IN BREAST REDUCTION. SHE IS KNOWN TO HAVE INTERTRIGO UNDER BOTH BREASTS AND HAD BEEN TREATED WITH ZEASORB POWDER AND LOTRISONE. THIS HAS RESOLVED. SHE IS ALSO KNOWN TO BE OSTEOPOROTIC AND SEES AND LINE OUT MAN WHO IS NOW AFFILIATED WITH [facility], DR BANDA. SHE WAS ON RECLAST BUT THIS WAS TEMPORARILY DISCONTINUED WHEN SHE HAD DENTAL ISSUES. HER LAST BMD IN 2022 SHOWED THE LOWEST T-SCORE TO BE -3.1 AT [facility]. HER LAST MAMMOGRAM DONE IN MAY 2023 SHOWED DENSE BREASTS AND WAS NORMAL. HER LIFETIME BREAST CA RISK IS 8.8%. HER LAST PAP TEST IN 2018 WAS NEGATIVE AND HPV NEGATIVE. SHE HAS NO HX OF ABNORMAL PAP TESTS. SHE HAD A COLONOSCOPY DONE IN [address] BARNES TO SCHEDULE ANOTHER ONE THIS YEAR. Annual General Health Maintenance: Current breast complaints:: no breast pain, mass, discharge, or skin changes Urinary problems:: patient r eports no urinary health problems or bowel health problems Calcium intake:: takes adequ ate calcium via diet and supplementation Significant SPECIMEN BOSS problems:: n o significant benefits advisor symptoms or problems Examination Category Sub-Category Detail Notes Category Not es General Exam CONSTITUTIONAL: General Appearan ce:: alert, in no acute distress, normal, well nourished NECK/THYROID: Thyroid:: normal size and shape Inspection/Palpation:: normal RESPIRATORY: Auscultation: clear to auscultation bilaterally, Respiratory Effort: normal CARDIOVASCULAR: Auscultation: regula r rate and rhythm GASTROINTESTINAL: Abdomen:: no masses, nontender , nondistended Liver and Spleen:: normal Hernias:: no hernias present, no inguina l adenopathy MUSCULOSKELETAL: Inspection/Palpation:: no clubb ing, cyanosis, or edema SKIN: Skin:: normal NEURO/PSYCH: Mood/Affect:: normal Orientation:: time , place, person BREAST, Right: Inspection/Palpation :: no discharge, no masses present, no nipple retraction, no skin changes, no skin dimpling, no tenderness, no lymphadenopathy, no axillary mass, no axillary tenderness BREAST, Left: Inspection/Palpation :: no discharge, no masses present, no nipple retraction, no skin changes, no skin dimpling, no tenderness, no lymphadenopathy, no axillary mass, no axillary tenderness Genitourinary EXTERNAL GENITALIA: External Genitalia:: nor mal, no lesions VAGINA: Vagina:: normal appearance, no a bnormal discharge, no lesions BLADDER: Bladder:: no mass, nontender URETHRA: Urethra:: no erythema or lesions present CERVIX: Cervix:: no lesions, nontender UTERUS: Uterus:: nontender, normal conto ur, normal mobility, normal size ADNEXA: Adnexa:: no masses, no tendernes s ANUS AND PERINEUM: Anus/Perineum:: visually norm al
--- OUTSIDE RECORDS SUMMARY | 2024-08-09 08:08 | XMS_ITS | Encounter Summary ---
Author Organization [facility] Address [address] [place] [address] Care Team Providers Care Clinical Support Associate Name Role Phone Buster Murphy MD Primary Care Provider Unava ilable Reason for Visit * Reason Onset Date Comments Provider Call Back 06/15/2022 Encounter Details Date Type Department Care Team Description 06/15/2022 Telephone Pulmonology - [place] [address] [facility] [address] [place] [address] Adilene Rodgers MD [address] [place] [address] Provider Call Back Social History Tobacco Use Types Packs/Day Years Used Date Smoking Tobacco: Former Cigarettes 1 20 Smokeless Tobacco: Never Comments:quit at age 40 Alcohol Use Standard Drinks/Week Comments No 0 (1 standard drink = 0.6 oz pur e alcohol) Sex Assigned at Date Recorded Not on file documented as of this encounter Miscellaneous Notes * Telephone Encounter - Jj Varela CMA - 06/17/2022 11:02 AM EST Pt informed of audio appt today at 1:[address] Rodgers * Telephone Encounter - Adilene Rodgers MD - 06/16/2022 6:37 PM EST Audio tomorrow at 130 * Telephone Encounter - Jj Varela CMA - 06/16/2022 2:44 PM EST Would you like pt to be seen sooner? please advise * Telephone Encounter - Denita Krishnan Matthias - 06/15/2022 1:07 PM EST Patient calling looking to get seen sooner than August, patient had asthma, URI, sob, zopenex inhaler,prednisone 30mg no taper for 5 days, given pcp taper for 40mg, gotten from pCP, [place]. Patient not feeling good. Would like to be seen sooner. Negative to flu and covid. documented in this encounter Plan of Treatment Not on file documented as of this encounter Visit Diagnoses Not on filedocumented in this encounter Care Teams Clinical Support Associate Relationship Specialty Start Date End Date Buster Murphy MD PCP - General Internal Medicine 04/27/17 documented as of this encounter
--- OUTSIDE RECORDS SUMMARY | 2024-08-09 08:08 | XMS_ITS | Encounter Summary ---
Author Organization [facility] Address [address] [place] [address] Care Team Providers Care Director Enterprise Data Architecture Name Role Phone Buster Murphy MD Primary Care Provider Unava ilable Reason for Visit * Reason Onset Date Comments Prior Authorization 06/02/2018 Temazepam Encounter Details Date Type Department Care Team Description 06/02/2018 Telephone Pulmonology - [place] [address] [facility] [address] [place] [address] Adilene Rodgers MD [address] [place] [address] Prior Authorization (Temazepam ) Social History Tobacco Use Types Packs/Day Years Used Date Smoking Tobacco: Former Cigarettes 1 20 Smokeless Tobacco: Never Comments:quit at age 40 Alcohol Use Standard Drinks/Week Comments No 0 (1 standard drink = 0.6 oz pur e alcohol) Sex Assigned at Date Recorded Not on file documented as of this encounter Miscellaneous Notes * Telephone Encounter - Karyn Munoz M.A. - 07/05/2018 1:14 PM EDT Spoke with Latisha from pts pharmacy who stated that the last oyster picker was on 05/11/18. She did a test claim and it goes through for a 7.00 copay. She did mention about it being on back order. * Telephone Encounter - Karyn Munoz M.A. - 06/16/2018 9:54 AM EST Spoke to Donna from the pharmacy who stated that there is no refills on this medication and it waslast picked up on 05/11/18. * Telephone Encounter - Karyn Munoz M.A. - 06/05/2018 9:52 AM EST Please provide dx for the temazepam? Thank you Please reply back to [id number] Prior [facility] Karyn Palomo [facility] Prior Authorization Ext [id number] * Telephone Encounter - Karyn Munoz M.A. - 06/05/2018 9:50 AM EST [phone] * Telephone Encounter - Lori Ferrer - 06/02/2018 4:15 PM EST Received fax from Medicare [employer] authorization Dept for TEMAZEPAM 7.5mg capsule Needs to have Medicare Part D form completed and returned to them Sent message to the [facility] requesting fax number to fax form to documented in this encounter Plan of Treatment Not on file documented as of this encounter Visit Diagnoses Not on filedocumented in this encounter Care Teams Director Enterprise Data Architecture Relationship Specialty Start Date End Date Buster Murphy MD PCP - General Internal Medicine 04/27/17 documented as of this encounter
--- OUTSIDE RECORDS SUMMARY | 2024-08-09 08:08 | XMS_ITS ---
Author Organization [facility] Address [address] [place] [address] Care Team Providers Care Anthropology And Archeology Instructor Name Role Phone KIELVICTORINO Primary Care Provider Ricarda Worley Unavailable [phone] Allergies Allergen (clinical drug ingredient) Drug/Non Drug Allergy documented on EMR Reaction Allergy Type Onset Date Status vancomycin Vancomycin HCl Skin Rash Drug Allergy A ctive ethinyl estradiol / segesterone Annovera Unknown Drug Allergy Active Penicillin Skin Rash Drug Allergy Active REASON FOR VISIT UNDER BREAST RASH NO BETTER Medications Medication SIG (Take, Route, Frequency, Duration) Notes Start Date End Date Status NexIUM 20 MG 1 capsule Orally Onc e a day Osmin-MJ 02/19/2011 Active Spiriva HandiHaler 18 MCG 1 capsule Inha lation twice a day Active APAP Active Restoril 7.5 MG 1 capsule at bedtime as needed Orally Once a day Active Multi For Her - as directed Orally Active Clotrimazole-Betamethason e 1-0.05 % 1 application to affected area Externally Twice a day for 14 days 08/23/2023 Active Vitamin D3 50 MCG (1999 UT) 1 capsule Orally Once a day Active Social History Tobacco Use: Social History Observation Description Date Details (start date - stop date) Former Smoker NA - NA Tobacco Use/Smoking Question Answer Notes Are you a former smoker How long has it been since you last smoked? > 10 years Alcohol Screen (Audit-C) Question Answer Notes Did you have a drink contain ing alcohol in the past year? Yes How often did you have a dri nk containing alcohol in the past year? Monthly or less (1 point) How many drinks did you have on a typical day when you were drinking in the past year? 1 or 2 drinks (0 point) Points 1 Interpretation Negative Vital Signs Temperature 97.4 degrees Fahrenheit 09/05/19 24 Blood pressure systolic 134 mm Hg 09/05/19 24 Blood pressure diastolic 74 mm Hg 024 Height 64 in 09/05/2023 Weight 127 lbs 09/05/2023 BMI 21.8 kg/m2 09/05/2023 Encounters Encounter Location Date Provider Diagnosis [facility] [address] [place] [address] 09/05/2023 Ricarda Mancia Irritant contact dermatitis due to other agents L24.89 Assessments Encounter Date Diagnosis (ICD Code) Assessment Notes Treatment Notes Treatment Clinical Notes Section Notes 09/05/2023 Irritant contact dermatitis due to other agents (ICD-10 - L24.89) DISCUSSED FINDINGS WITH PAT. STOP USING LOTRISONE. STOP SCRUBBING THE AREA. BATHE OR SHOWER ONCE DAILY AND DRY AREA WELL WITHOUT SCRUBBING. USE ZEASORB POWDER TWICE A DAY TO KEEP THE AREA DRY. SHE WILL BE GIVEN ANTIBIOTICS FOR A TOOTH PROCEDURE AND IF SHE DEVELOPS YEAST AGAIN, SHE WILL CALL AND I WILL GIVE HER NYSTATIN WITH TRIAMCINOLONE CREAM. Plan Of Treatment Treatment Notes Assessment Notes Irritant contact dermatitis due to other agents DISCUSSED FINDINGS WITH PAT. STOP USING LOTRISONE. STOP SCRUBBING THE AREA. BATHE OR SHOWER ONCE DAILY AND DRY AREA WELL WITHOUT SCRUBBING. USE ZEASORB POWDER TWICE A DAY TO KEEP THE AREA DRY. SHE WILL BE GIVEN ANTIBIOTICS FOR A TOOTH PROCEDURE AND IF SHE DEVELOPS YEAST AGAIN, SHE WILL CALL AND I WILL GIVE HER NYSTATIN WITH TRIAMCINOLONE CREAM. Next Appt Details Follow Up: prn, Reason: Provider Name:Ricarda davis, 05/29/2025 10:20:00 AM, [address], [address], [place], [address], Progress Notes * SITA EATONDOB:1950 (73 yo F)Acc No.[id number]:09/05/2023 PROGRESS NOTES Patient:?SITA EATON Appointment Provider:?Ricarda davis M.D. :1950???Age:73 Y???Sex:Female D ate:09/05/2023 Address:[address] [place] [address], , [facility] Pcp:LAMONT SANABRIA M.D. Subjective: * Chief Complaints: * ???UNDER BREAST RASH NO BETT ER * HPI: ???New/Follow-up Patient Consult:? PAT WAS FOUND TO HAVE INTERTRIGO UNDER BOTH BREASTS ON ROUTINE EXAM IN MAY 2023.? SHE WAS ASYMPTOMATIC AND WAS NOT EVEN AWARE OF THE RASH.? SHE WAS TREATED WITH LOTRISONE CREAM.? THE PAT BECAME SOMEWHAT OBSESSED WITH THIS FINDING AN D HAS BEEN SCRUBBING THIS AREA 2 TO 3 TIMES PER DAY.? SHE WAS ADVISED TO USE LOTRISONE ONLY FOR 2 WEEKS BUT SHE HAS NOT STOPPED APPLYING THE CREAM SINCE MAY 2023.? SHE NOW C/O IRRITATION UNDER BOTH BREASTS.? NO ITCHING.? SHE IS HERE FOR EVALUATION. * ROS:?general:?no?chest pain.?no?palpitations.?no?headache.?no?cough.?no?shortness of breath.?no?fever.?no?unexplained weight loss.?no?nausea/vomiting.?no?change in bowel movements.?no blood in stool.?no?genitourinary complaints.?no?skin complaints.? * Medical History:? * Plastics Fabricator And Assembler History:?/ Para?3/2.?Sexual activity?currently sexually active.?Last Pap Smear:?11/22/18 NIL, NEG HRHPV, 01/01/2015, neg, NEG HRHPV.?Mammogram:?06/01/23 50-75% density, 05/24/22 Unilat Right < 50% density, 05/21/21 50-75% density, 01/02/20 50-75% density, 09/08/18 Diagnostic 50-75% density, 05/19/16 50-75% density, 05/07/2015 normal, 03/18/14, < 50% density.?LMP and menses?Lucita.? Control:?Bilateral Tubal Ligation.?Menopause: ?Began at age: ?52 ???Colonoscopy?2013.?Bone Density:?05/05/22, 01/02/20, 08/17/17, 05/07/2015.?PARK KEEPER HISTORY MISC.?05/25/16 Dense Breast Questionairre Mailed to Patient to Complete and Return to Office to Calculate Risk. 07/07/16 Beverly Score Lifetime Risk = 8.8%.? * OB History:?Total pregnancies?3.?Total living children?2.?NVD?2.? * Surgical History:?Bilateral Tubal Ligation Cholecystectomy Colonoscopy Left Thyroidectomy Right Hip Replacement neursym in Hand Bilateral Leg Vein Surgery * Hospitalization/Major Diagno stic Procedure:?2 Vaginal Deliveries See Surgical Hx * Family History:?Mother: dece ased 84 yrs, Coronary Artery Disease.?Father: , In his 70's, Throat Cancer.? Brother: Lymphoma @ 19 yo Maternal Cousin: Breast Cancer Maternal 3rd Cousin: Colon Cancer. * Social History:?Tobacco Use:?Tobacco Use/Smoking?Are you a?former smoker ?How long has it been since you last smoked??> 10 years ???Sexual History:?Sexual History?Had sex in the past 12 months (vaginal, oral, or anal)?: Yes, with: Men only, Prevention strategies discussed:: Other.?Details of Sexual History?Are you sexually active??Yes ???Drugs/Alcohol:?Drugs?Have you used drugs other than those for medical reasons in the past 12 months??No ?Alcohol Screen (Audit-C)?Did you have a drink containing alcohol in the past year??Yes ?How often did you have a drink containing alcohol in the past year??Monthly or less (1 point) ?How many drinks did you have on a typical day when you were drinking in the past year??1 or 2 drinks (0 point) ?Points?1 ?Interpretation?Negative ???Miscellaneous:?Children: yes, 2. ?Domestic violence: no. ?Exercise: yes, walking. ?Home smoke detector use: yes. ?Living with: spouse. ?Marital status: . ?Natural support system: yes. ?Occupation: Works full-time. ?Sexual abuse: no. ?Sexually active: yes, monogamous relationship. ?Verbal abuse: no. * Medications:?TakingMulti For Her - Tablet as directed Orally APAP Restoril 7.5 MG Capsule 1 capsule at bedtime as needed Orally Once a day NexIUM 20 MG Capsule Delayed Release 1 capsule Orally Once a day , Notes to Pharmacist: PrettySpiriva HandiHaler 18 MCG Capsule 1 capsule Inhalation twice a day Vitamin D3 50 MCG (2000 UT) Capsule 1 capsule Orally Once a day Clotrimazole-Betamethasone 1-0.05 % Cream 1 application to affected area Externally Twice a day Taking Multi For Her - Tablet as directed Orally Taking APAP Taking Restoril 7.5 MG Capsule 1 capsule at bedtime as needed Orally Once a day Taking NexIUM 20 MG Capsule Delayed Release 1 capsule Orally Once a day , Notes to Pharmacist: [facility] Spiriva HandiHaler 18 MCG Capsule 1 capsule Inhalation twice a day Taking Vitamin D3 50 MCG (2000 UT) Capsule 1 capsule Orally Once a day Taking Clotrimazole-Betamethasone 1-0.05 % Cream 1 application to affected area Externally Twice a day DiscontinuedClotrimazole-Betamethasone 1-0.05 % Cream 1 application to affected area Externally Twice a day Medication List reviewed and reconciled with the patientDiscontinued Clotrimazole-Betamethasone 1-0.05 % Cream 1 application to affected area Externally Twice a day Medication List reviewed and reconciled with the patient * Allergies:?Vancomycin HCl: S kin Rash - AllergyPenicillin: Skin Rash - AllergyAnnovera: Allergyno[Allergies Verified] Objective: * Vitals:?Ht: 64 in, Wt: 127 l bs, BMI:21.8Index, BP: 134/74 mm Hg, Temp: 97.4 F. * Examination: ???General Examination: ?GENERAL APPEARANCE:?in no acute distress, well developed, well nourished.?SKIN:?RASH UNDER BOTH BREASTS, ERYTHEMATOUS AND RAW, NO YEAST.? Assessment: * Assessment: 1.?Irritant contact dermatit is due to other agents - L24.89 (Primary)? Plan: * Treatment: * Procedure Codes:? * Follow Up:?prn * Images: Billing Information: * Visit Code:? * Procedure Codes:? * Sign off status: Completed true * Appointment Provider:?Ricarda Mancia M.D. Date:?09/05/2023 Generated for Amauri davila/Laila/eTransmitting on:?08/09/2024 08:08 AM EDT History and Physical Notes * HPI (History of Present Illness) Category Sub-Category Detail Notes Category Not es New/Follow-up Patient Consult PAT WAS FOUND TO HAV E INTERTRIGO UNDER BOTH BREASTS ON ROUTINE EXAM IN MAY 2023. SHE WAS ASYMPTOMATIC AND WAS NOT EVEN AWARE OF THE RASH. SHE WAS TREATED WITH LOTRISONE CREAM. THE PAT BECAME SOMEWHAT OBSESSED WITH THIS FINDING AN D HAS BEEN SCRUBBING THIS AREA 2 TO 3 TIMES PER DAY. SHE WAS ADVISED TO USE LOTRISONE ONLY FOR 2 WEEKS BUT SHE HAS NOT STOPPED APPLYING THE CREAM SINCE MAY 2023. SHE NOW C/O IRRITATION UNDER BOTH BREASTS. NO ITCHING. SHE IS HERE FOR EVALUATION. Examination Category Sub-Category Detail Notes Category Not es General Examination GENERAL APPEARANCE: in no ac tazlina distress, well developed, well nourished SKIN: RASH UNDER BOTH ALESHA STS, ERYTHEMATOUS AND RAW, NO YEAST
--- OUTSIDE RECORDS SUMMARY | 2024-08-09 08:08 | XMS_ITS | Encounter Summary ---
Author Organization [facility] Address [address] [place] [address] Care Team Providers Care Laborer Carpentry Dock Name Role Phone Buster Murphy MD Primary Care Provider Unava ilable Reason for Visit * Reason Onset Date Comments Faxed Refill 02/09/2018 Encounter Details Date Type Department Care Team Description 02/09/2018 Refill Pulmonology - [place] [address] [place] [address] Adilene Rodgers MD [address] [place] [address] Faxed Refill Social History Tobacco Use Types Packs/Day Years Used Date Smoking Tobacco: Former Cigarettes 1 20 Smokeless Tobacco: Never Comments:quit at age 40 Alcohol Use Standard Drinks/Week Comments No 0 (1 standard drink = 0.6 oz pur e alcohol) Sex Assigned at Date Recorded Not on file documented as of this encounter Miscellaneous Notes * Telephone Encounter - Emily Fang - 02/09/2018 4:58 PM EDT Patient would like script to be: E-PRESCRIBED/FAXED TO PHARMACY WHEN WAS THE PATIENT'S LAST APPOINTMENT WITH THE PRESCRIBING PROVIDER? 11/09/2017 Does patient have an upcoming appointment? Yes 04/19/2018 (THE MEDICATION REQUESTED IS ON THE MED LIST ABOVE) All of the medications requested were on the CURRENT MEDS list Did you check the Pharmacy information above?: YES Patient wants: 90 -day supply Is this a mail order prescription request ? NO Patients current insurance carrier is: Payor: [employer] [facility] O&P Pro / Plan: EPO $20 BELK[employer] /Product Type: EPO documented in this encounter Plan of Treatment Not on file documented as of this encounter Visit Diagnoses Not on filedocumented in this encounter Care Teams Laborer Carpentry Dock Relationship Specialty Start Date End Date Buster Murphy MD PCP - General Internal Medicine 04/27/17 documented as of this encounter
--- OUTSIDE RECORDS SUMMARY | 2024-08-09 08:09 | XMS_ITS | Patient Health Record ---
Author Organization [facility] Address [address] [place] [address] Care Team Providers Care Supervisor Hide House Name Role Phone VICTORINO DYSON Primary Care Provider Ricarda Worley Unavailable [phone] Allergies Allergen (clinical drug ingredient) Drug/Non Drug Allergy documented on EMR Reaction Allergy Type Onset Date Status vancomycin Vancomycin HCl Skin Rash Drug Allergy A ctive ethinyl estradiol / segesterone Annovera Unknown Drug Allergy Active Penicillin Skin Rash Drug Allergy Active Reason For Referral No Information Medications Medication SIG (Take, Route, Frequency, Duration) Notes Start Date End Date Status Zeasorb Active Spiriva HandiHaler 18 MCG 1 capsule Inhalation twice a day Active Norvasc 2.5 MG 1 tablet Orally Once a day Active Multi For Her - as directed Orally Active Temazepam 7.5 MG Oral for 30 Days Active NexIUM 20 MG 1 capsule Orally Onc e a day Osmin-MJ 02/19/2011 Active APAP Active Clotrimazole-Betamethas one 1-0.05 % 1 application to affected area Externally Twice a day for 14 days 08/23/2023 Not-Taki ng Vitamin D3 50 MCG (1999 UT) 1 [...] Problem Status W/U Status Risk Notes Problem Postmenopausal atrophic vaginitis (79511194) Postmenopausal atrophic vaginitis (N95.2) Active confirmed Problem Age-related osteoporosis (599923743) Age-related osteoporosis without current pathological fracture (M81.0) Active confirmed Problem Essential hypertension (79128821) Essential (primary) hypertension (I10) Active confirmed Problem Cervicalgia (25718766) Cervicalgia (M54.2) Active confirmed Problem Hypertrophy of breast (992897600) Hypertrophy of breast (N62) Active confirmed Problem Disorder of breast (34921155) Disorder of breast, unspecified (N64.9) Active confirmed Problem 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 confirmed Diag Problem Menopausal symptom (82945888) Symptomatic menopausal or female climacteric states (627.2) Active confirmed Major Problem Postmenopausal atrophic vaginitis (22204091) Postmenopausal atrophic vaginitis (627.3) Active confirmed Diag Problem 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 Major Problem Osteoporosis (05299755) Unspecified osteoporosis (733.00) Active confirmed Diag Problem Gynecological examination normal (662290198960087) Routine gynecological examination (V72.31) Active confirmed Problem Screening for malignant neoplasm of cervix (369741936) Screening for malignant neoplasm of the cervix (V76.2) Active confirmed Diag Problem Screening for malignant neoplasm of colon (425248588) Special screening for malignant neoplasms, colon (V76.51) Active confirmed Major Vital Signs Temperature 97.4 degrees Fahrenheit 05/24/2024 Blood pressure diastolic 80 mm Hg 05/24/2024 Height 64 in 05/24/2024 Blood pressure systolic 134 mm Hg 05/24/2024 Weight 128 lbs 05/24/2024 BMI 21.97 kg/m2 05/24/2024 Encounters Encounter Location Date Provider Diagnosis [facility] [address] [place] [address] 09/05/2023 Ricarda Mancia Irritant contact dermatitis due to other agents L24.89 [facility] [address] [place] [address] 05/24/2024 Ricarda Gavino Encounter for gynecological examination (general) (routine) without abnormal findings Z01.419 ; Encounter for screening mammogram for malignant neoplasm of breast Z12.31 ; Age-related osteoporosis without current pathological fracture M81.0 ; Hypertrophy of breast N62 and Cervicalgia M54.2 [facility] [place] [address] 08/23/2023 Ricarda Mancia Assessments Encounter Date Diagnosis (ICD Code) Assessment Notes Treatment Notes Treatment Clinical Notes Section Notes 09/05/2023 Irritant contact dermatitis due to other agents (ICD-10 - L24.89) DISCUSSED FINDINGS WITH INNA. STOP USING LOTRISONE. STOP SCRUBBING THE AREA. BATHE OR SHOWER ONCE DAILY AND DRY AREA WELL WITHOUT SCRUBBING. USE ZEASORB POWDER TWICE A DAY TO KEEP THE AREA DRY. SHE WILL BE GIVEN ANTIBIOTICS FOR A TOOTH PROCEDURE AND IF SHE DEVELOPS YEAST AGAIN, SHE WILL CALL AND I WILL GIVE HER NYSTATIN WITH TRIAMCINOLONE CREAM. 05/24/2024 Encounter for gynecological examination (general) (routine) [...] BEARING EXERCISES. OSTEO PRECAUTIONS. REFER BACK TO UNEMPLOYMENT INSURANCE DIRECTOR. REPEAT BMD THIS YEAR. 05/24/2024 Hypertrophy of [...] CHRISTINE GALLARDO OR NANDINI. Plan Of Treatment Pending Test Test Name Order Date MAMMOGRAM, SCREENING 01/01/2015 MAMMOGRAM, SCREENING 07/22/2020 MAMMOGRAM, SCREENING 05/12/2022 MAMMOGRAM, SCREENING 05/19/2023 MAMMOGRAM, SCREENING 05/24/2024 DIAGNOSTIC MAMMOGRAM, LEFT BREAST 2021 1,25OH VITAMIN D 05/09/2015 25OH VITAMIN D 08/19/2017 COMPREHENSIVE METABOLIC PANEL 08/19/2017 N-TELOPEPTIDE CROSS 05/09/2015 N-TELOPEPTIDE CROSS 08/19/2017 PTH, INTACT 08/19/2017 THIN PREP,HPV,MARIUSZ IF HPV+ (>29YR)(DIAG) 11/22/2018 TSH 08/19/2017 TSH 05/09/2015 BONE DENSITY 01/01/2015 BONE DENSITY 05/19/2023 BONE DENSITY 05/24/2024 BONE DENSITY 11/22/2018 MM Digital Mammo Screening 05/12/2022 MM Digital Mammo Screening 05/19/2023 MM Digital Mammo Screening 05/24/2024 MM Digital Mammo Screening 04/07/2016 MM Digital Mammo Screening 07/22/2020 Left Breast Ultrasound 02/24/2022 Diagnostic Left Breast Mammo/US 05/12/19 23 Next Appt Details Provider Name:Ricarda Kaur susan, 05/29/2025 10:20:00 AM, [address] [facility], [address], [place], [address], Insurance Providers Payer Name Payer Address Payer Phone Subscriber Number Group Number Insured Name Patient Relationship to Insured Coverage Start Date Coverage End Date BCBS MEDICARE PPO [address] [place] [address] [phone] [id number] SITA EATON Self - patient is the insured Medical (General) History Medical History History ICD Code Postmenopausal atrophic vaginitis N95.2 Age-related osteoporosis without current pathological fracture M81.0 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
--- OUTSIDE RECORDS SUMMARY | 2024-08-09 08:09 | XMS_ITS | Patient Health Record ---
Author Organization [facility] Address [address] [place] [address] Care Team Providers Care Reservations Clerk Name Role Phone Buster Murphy MD Primary Care Provider UnavailNay Barboza Unavailable [phone] Allergies Allergen (clinical drug ingredient) Drug/Non Drug [...] Date [employer] 65 Medicare Preferred [address] [place] [address] [id number] Connie Taylor Self - patient is the insured Medical (General) History Medical History History ICD Code Lung disease Osteoporosis Reflux ( GERD) Rheumatic fever Measles Mumps Chicken pox Joint implants/screws ocular cicatricial pemphigoid Surgical History Surgery Date(Month/Year) cholecystectomy 2001 thyroidectomy, left 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
--- OUTSIDE RECORDS SUMMARY | 2024-08-09 08:09 | XMS_ITS | Encounter Summary ---
Author Organization [facility] Address [address] [place] [address] Care Team Providers Care Warp Dyeing Tender Name Role Phone Buster Murphy MD Primary Care Provider Unava ilable Reason for Visit * Reason Comments E-prescribe Rx Request Encounter Details Date Type Department Care Team Description 06/24/2020 Refill Internal Medicine - [place] [address], [address] [place] [address] Adilene Rodgers MD [address] [place] [phone] E-prescribe Rx Request Social History Tobacco Use Types Packs/Day Years Used Date Smoking Tobacco: Former Cigarettes 1 20 Smokeless Tobacco: Never Comments:quit at age 40 Alcohol Use Standard Drinks/Week Comments No 0 (1 standard drink = 0.6 oz pur e alcohol) Sex Assigned at Date Recorded Not on file documented as of this encounter Miscellaneous Notes * Telephone Encounter - Liberty Zhang - 06/24/2020 11:54 AM EST [id number] 30 day documented in this encounter Plan of Treatment Not on file documented as of this encounter Visit Diagnoses Diagnosis Pulmonary emphysema, unspecified emphysema type (HCC) documented in this encounter Care Teams Warp Dyeing Tender Relationship Specialty Start Date End Date Buster Murphy MD PCP - General Internal Medicine 04/27/17 documented as of this encounter
--- OUTSIDE RECORDS SUMMARY | 2024-08-09 08:09 | XMS_ITS | Encounter Summary ---
Author Organization [facility] Address [address] [place] [address] Care Team Providers Care Bed Control Specialist Name Role Phone Buster Murphy MD Primary Care Provider Unava ilable Reason for Visit * Reason Onset Date Comments refill request 06/28/2019 Encounter Details Date Type Department Care Team Description 06/28/2019 Refill Internal Medicine - [address], [address] [place] [address] Buster Murphy MD refill request Social History Tobacco Use Types Packs/Day Years Used Date Smoking Tobacco: Former Cigarettes 1 20 Smokeless Tobacco: Never Comments:quit at age 40 Alcohol Use Standard Drinks/Week Comments No 0 (1 standard drink = 0.6 oz pur e alcohol) Sex Assigned at Date Recorded Not on file documented as of this encounter Miscellaneous Notes * Telephone Encounter - Malorie Gallardo - 06/28/2019 8:41 AM EDT pt ? Need for Pro Air as well Patient would like script to be: E-PRESCRIBED/FAXED TO PHARMACY WHEN WAS THE PATIENT'S LAST APPOINTMENT IN ADULT MEDICINE? 03.14.19 WHEN WAS THE LAST TIME THE PATIENT SAW THEIR PCP? Same as above Does patient have an upcoming appointment? Yes 09.12.19 (THE MEDICATION REQUESTED IS ON THE MED LIST ABOVE) All of the medications requested were on the CURRENT MEDS list Did you check the Pharmacy information above?: YES Patient wants: 30 -day supply Is this a mail order prescription request ? NO If the refill is from a FAXED refill request what is the RX # listed on the fax? N/A Patients current insurance carrier is: Payor: [facility]/MEDICARE PPO / Plan: [facility] MDCR-ADV PPO $20/$40 [place] / Product Type: MEDICARE [id number] documented in this encounter Plan of Treatment Not on file documented as of this encounter Visit Diagnoses Diagnosis Pulmonary emphysema, unspecified emphysema type (HCC) documented in this encounter Care Teams Bed Control Specialist Relationship Specialty Start Date End Date Buster Murphy MD PCP - General Internal Medicine 04/27/17 documented as of this encounter
--- OUTSIDE RECORDS SUMMARY | 2024-08-09 08:09 | XMS_ITS ---
Author Organization [employer] [facility] Address [address] [place] [phone] Care Team Providers Care Union Contract Representative Name Role Phone VICTORINO DYSON Primary Care Provider Ricarda Worley [phone] REASON FOR VISIT FUNGAL INFECTION Medications Medication SIG (Take, Route, Frequency, Duration) Notes Start Date End Date Status Clotrimazole-Betamethasone 1-0.05 % 1 application to affected area Externally Twice a day for 14 days 08/23/2023 Active Encounters Encounter Location Date Provider Diagnosis [facility] [employer] [facility] [address] [address] 08/23/2023 Ricarda Mancia Plan Of Treatment Medication Medication Name Sig Start Date Stop Date Notes Clotrimazole-Betamethasone 1-0.05 % 1 application to affected area Externally Twice a day for 14 days 08/23/2023 Next Appt Details Provider Name:Ricarda davis, 05/29/2025 10:20:00 AM, [address] [place] [address], [address], [place], [address], Progress Notes * VINODLynnette SITADOB:1950 (73 yo F)Acc No.[id number]:08/23/2023 Patient:?SITA EATON :1950???Age:73 Y???Sex:Female Address:[address] [place] [address], [place], [address] * Refills? Start Clotrimazole-Betamethasone Cream, 1-0.05 %, Externally, 45 Gram, 1 application to affected area, Twice a day, 14 days, Refills=4 * true * Date:? Generated for Amauri davila/Laila/Cherelleitting on:?08/09/2024 08:09 AM EDT
--- OUTSIDE RECORDS SUMMARY | 2024-08-09 08:09 | XMS_ITS | Encounter Summary ---
Author Organization [facility] Address [address] [place] [address] Care Team Providers Care Prototype Deicer Assembler Name Role Phone Buster Murphy MD Primary Care Provider Unava ilable Reason for Visit * Reason Onset Date Comments medication problems 07/06/2018 Encounter Details Date Type Department Care Team Description 07/06/2018 Telephone Pulmonology - [place] 175 [facility] [address] [place] [address] Adilene Rodgers MD [address] [place] [address] medication problems Social History Tobacco Use Types Packs/Day Years Used Date Smoking Tobacco: Former Cigarettes 1 20 Smokeless Tobacco: Never Comments:quit at age 40 Alcohol Use Standard Drinks/Week Comments No 0 (1 standard drink = 0.6 oz pur e alcohol) Sex Assigned at Date Recorded Not on file documented as of this encounter Miscellaneous Notes * Telephone Encounter - Lori Ferrer - 07/06/2018 3:11 PM EDT What is the name of the medication patient is having a problem with?: Tiotropium [place]-Olodaterol(STIOLTO RESPIMAT) 2.5-2.5 MCG/ACT Aero Soln What is the problem?: not covered by her insurance and asking to have SPIRIVA again - she feels fine with this Is the patient calling about the problem? YES If the patient is not the caller who is? NA Is this a NEW medication?: How long has the patient been taking this medication? NA Who prescribed this medication for the patient? Dr. Rodgers Who is patients PCP?: Dr. Rodgers Payor: [facility]/MEDICARE PPO / Plan: [facility] MDCR-ADV PPO $0 [place] [id number] / Product Type: MEDICARE [id number] documented in this encounter Plan of Treatment Not on file documented as of this encounter Visit Diagnoses Diagnosis Pulmonary emphysema, unspecified emphysema type (HCC)- Primary documented in this encounter Care Teams Prototype Deicer Assembler Relationship Specialty Start Date End Date Buster Murphy MD PCP - General Internal Medicine 04/27/17 documented as of this encounter
--- OUTSIDE RECORDS SUMMARY | 2024-08-09 08:09 | XMS_ITS | Clinical Summary ---
Author Organization [facility] Address [address] [place] [address] Care Team Providers Care Golf Club Head Former Name Role Phone Buster Murphy MD Primary Care Provider [phone] Allergies No known active allergies Medications Medication Sig Dispensed Refills Start Date End Date Status temazepam (RESTORIL) 7.5 MG capsule Take 7.5 mg by mouth. 0 Active temazepam (RESTORIL) 15 MG capsule TAKE ONE CAPSULE BY MOUTH EVERY DAY AT BEDTIME 0 10/05/2017 Active ESTRING 2 MG vaginal ring INSERT 1 RING EVERY 3 MONTHS VAGINALLY FOR 90 DAYS 4 10/10/2017 Active Family History Medical History Relation Name Comments Cancer Father Heart disease Mother Hypertension Mother Relation Name Status Comments Father Mother Social History Tobacco Use Types Packs/Day Years Used Date Smoking Tobacco: Former Smokeless Tobacco: Never Alcohol Use Standard Drinks/Week Comments Yes 0 (1 standard drink = 0.6 oz pur e alcohol) social Sex and Gender Information Value Date Recorded Sex Assigned at Not on file Gender Identity Not on file Sexual Orientation Not on file Plan of Treatment Health Maintenance Due Date Last Done Comments Hepatitis C Screening 1950 COVID-19 Vaccine (#1) 1950 Depression Screening 1962 Preventative Health Evaluation 1968 DTap / Tdap / Td (1 - Tdap) 1969 Colon Cancer Screening (Colonoscopy) 1995 Breast Cancer Screening (Mammogram) 2000 Shingrix-Zoster Vaccine (1 of 2) 2000 Fall Risk Assessment 2015 Osteoporosis Screening (DEXA Scan) 2015 Pneumococcal Vaccine (2 of 2 - PPSV23 or PCV20) 03/31/2016 03/31/2015 Influenza Vaccine (#1) 2023 RSV Adult > 60+ Yrs or Pregn ant (1 - 1-dose 75+ series) 2025 Hepatitis B Vaccines Aged Out No long er eligible based on patient's age to complete this topic RSV Ped < 20 months Aged Out No longe r eligible based on patient's age to complete this topic Care Teams Golf Club Head Former Relationship Specialty Start Date End Date Buster Murphy MD [address] [place] [address] [address] [place], [place] [phone] PCP - General Preventive Medicine Specialist 11/21/17
--- OUTSIDE RECORDS SUMMARY | 2024-08-09 08:09 | XMS_ITS | Encounter Summary ---
Author Organization [facility] Address [facility] [place] [address] Care Team Providers Care Quality Control Lab Tech Name Role Phone Community, Pcp Primary Care Provider Buster Medina MD Primary Care Provider Linnette fleming Encounter Details Date Type Department Care Team Description 04/05/2017 Transfer Records Medical Records [address] [place] [id number] Abstract, Provider Social History Tobacco Use Types Packs/Day Years Used Date Smoking Tobacco: Never Assessed Sex Assigned at Date Recorded Not on file documented as of this encounter Plan of Treatment Not on file documented as of this encounter Visit Diagnoses Not on filedocumented in this encounter Care Teams Quality Control Lab Tech Relationship Specialty Start Date End Date Community, Pcp PCP - General Internal Medicine 03/24/17 04/26/17 Buster Murphy MD PCP - General Internal Medicine 04/27/17 documented as of this encounter
--- OUTSIDE RECORDS SUMMARY | 2024-08-09 08:09 | XMS_ITS | Encounter Summary ---
Author Organization [facility] Address [address] [place] [address] Care Team Providers Care Choreography Director Name Role Phone Buster Murphy MD Primary Care Provider Unava ilable Reason for Visit * Reason Comments E-prescribe Rx Request Encounter Details Date Type Department Care Team Description 03/22/2020 Refill Internal Medicine - [place] 175 [facility], [address] [place] [address] Adilene Rodgers MD [address] [place] [phone] E-prescribe Rx Request Social History Tobacco Use Types Packs/Day Years Used Date Smoking Tobacco: Former Cigarettes 1 20 Smokeless Tobacco: Never Comments:quit at age 40 Alcohol Use Standard Drinks/Week Comments No 0 (1 standard drink = 0.6 oz pur e alcohol) Sex Assigned at Date Recorded Not on file documented as of this encounter Miscellaneous Notes * Telephone Encounter - Jeni Xie - 03/24/2020 10:34 AM EST BRIGID: 09/12/2019 NOV: 07/21/2020 90 day supply. documented in this encounter Plan of Treatment Not on file documented as of this encounter Visit Diagnoses Diagnosis Pulmonary emphysema, unspecified emphysema type (HCC) documented in this encounter Care Teams Choreography Director Relationship Specialty Start Date End Date Buster Murphy MD PCP - General Internal Medicine 04/27/17 documented as of this encounter
--- OUTSIDE RECORDS SUMMARY | 2024-08-09 08:09 | XMS_ITS | Encounter Summary ---
Author Organization [facility] Address [address] [place] [address] Care Team Providers Care Deputy Sheriff Court Services Name Role Phone Buster Murphy MD Primary Care Provider Unava ilable Reason for Visit * Reason Onset Date Comments medication problems 08/21/2018 Encounter Details Date Type Department Care Team Description 08/21/2018 Telephone Pulmonology - [place] 175 [facility] [address] [place] [address] Adilene Rodgers MD [address] [place] [address] medication problems Social History Tobacco Use Types Packs/Day Years Used Date Smoking Tobacco: Former Cigarettes 1 20 Smokeless Tobacco: Never Comments:quit at age 40 Alcohol Use Standard Drinks/Week Comments No 0 (1 standard drink = 0.6 oz pur e alcohol) Sex Assigned at Date Recorded Not on file documented as of this encounter Miscellaneous Notes * Telephone Encounter - Melvi Mcqueen M.A. - 08/21/2018 11:30 AM EDT They needed a new prescription with the direction. * Telephone Encounter - Ninfa Meyer - 08/21/2018 11:18 AM EDT Pharmacy its Calling they need clarification on the direction for tiotropium (SPIRIVA HANDIHALER) 18 MCG inhalation capsule documented in this encounter Plan of Treatment Not on file documented as of this encounter Visit Diagnoses Diagnosis Pulmonary emphysema, unspecified emphysema type (HCC)- Primary documented in this encounter Care Teams Deputy Sheriff Court Services Relationship Specialty Start Date End Date Buster Murphy MD PCP - General Internal Medicine 04/27/17 documented as of this encounter
== END 2024-08-09 09:11 | disposition home or self-care (01) ==
LOC: HO.RHES 08:01
PROVIDERS: PCP Internal Medicine; Visit Provider Internal Medicine Rheumatology
DX: M81.0 Age-related osteoporosis without current pathological fracture (principal)
CPT/HCPCS: 99214; G2211